=== PATIENT | male | born 1975 | race Caucasian/White ===

== ENCOUNTER 2016-05-31 09:57 | Emergency (ER) | payer OTHER ==
[~2016-05-31] VITALS: Ht 180.3 cm; Wt 133.2 kg
[~2016-05-31 09:57] MED LIST: ALLOPURINOL100 MG PO; COMPAZINE10 MG PO; CYANOCOBAL1000 MCG/2 IM; DICYCLOMINE HCL20 MG PO; FOLIC ACID1 MG PO; GABAPENTIN100 MG PO; LISINOPRIL20 MG PO; METRONIDAZOLE500 MG PO; MYCOSTATIN 100,60 ML PO; NYSTATIN100000 UN1 PO; ONDANSETRON ODT4 MG PO; PANTOPRAZOLE SO40 MG PO; PENTASA250 MG PO; PREDNISONE20 MG PO; TAMSULOSIN HCL0.4 MG PO
[2016-05-31 10:30] LABS: HEMATOCRIT 38.7 % (38.0-50.0); MCH 31.1 PG (29.0-34.0); MCHC 34.1 G/DL (30.0-36.0); MCV 91.1 FL (86-99); MEAN PLAT.VOLUME 9.8 uM^3 (9.0-12.4); PLATELET COUNT 200 K/uL (156-360); RBC DIS.WIDTH-CV 12.7 % (11.8-14.6); RBC DIS.WIDTH-SD 41.5 % (39-53); RED BLOOD COUNT 4.25 M/uL (4.00-5.50); WHITE BLOOD COUNT 6.4 K/uL (4.1-10.2)
[2016-05-31 10:42] LABS: CHLORIDE 108 mEq/L (99-109); POTASSIUM 3.9 mEq/L (3.7-5.4); SODIUM 142 mEq/L (136-147)
[2016-05-31 10:44] LABS: GLUCOSE 93 mg/dL (70-99)
[2016-05-31 10:46] LABS: ANION GAP 11 MEQ/L (2-14)
[2016-05-31 10:48] LABS: GFR ESTIMATE (CALCULATED) > 59 mL/min/
[2016-05-31 10:49] LABS: UREA NITROGEN (BUN) 11 mg/dL (9-23)
[2016-05-31 10:58] LABS: TROP-I INTERPRETATION NEGATIVE; TROPONIN-I 0.02 ng/mL (0.0-0.30)
[2016-05-31 13:38] LABS: TROP-I INTERPRETATION NEGATIVE; TROPONIN-I 0.02 ng/mL (0.0-0.30)
[2016-05-31] MEDS ORDERED: NAPROSYN500 MG PO (14:01)
[2016-05-31] MEDS ORDERED: FLEXERIL10 MG PO (14:01)
[2016-05-31 14:26] VITALS: BP 146/71
== END 2016-05-31 14:27 | disposition home or self-care (01) ==
LOC: EME 09:57
PROVIDERS: Nurse Practitioner Family
DX: R07.9 Chest pain, unspecified (principal); S29.011A Strain of muscle and tendon of front wall of thorax, initial encounter; L30.1 Dyshidrosis [pompholyx]; I10 Essential (primary) hypertension; K21.9 Gastro-esophageal reflux disease without esophagitis; M10.9 Gout, unspecified
CPT/HCPCS: 71020; 80048; 84484; 85027; 93005; 99281; 99284; J1885

== ENCOUNTER 2016-07-12 12:19 | Emergency (ER) | payer OTHER ==
[~2016-07-12] VITALS: Ht 180.3 cm; Wt 130.7 kg
[~2016-07-12 12:19] MED LIST changes: +FLEXERIL10 MG PO; +NAPROSYN500 MG PO
[2016-07-12 13:01] LABS: HEMATOCRIT 41.2 % (38.0-50.0); MCH 30.2 PG (29.0-34.0); MCV 88.8 FL (86-99); PLATELET COUNT 215 K/uL (156-360); RBC DIS.WIDTH-SD 38.9 % (39-53); RED BLOOD COUNT 4.64 M/uL (4.00-5.50); WHITE BLOOD COUNT 5.9 K/uL (4.1-10.2)
[2016-07-12 13:10] LABS: CHLORIDE 107 mEq/L (99-109); SODIUM 142 mEq/L (136-147)
[2016-07-12 13:12] LABS: GLUCOSE 99 mg/dL (70-99)
[2016-07-12 13:13] LABS: ANION GAP 9 MEQ/L (2-14)
[2016-07-12 13:14] LABS: TOTAL BILIRUBIN 0.8 mg/dL (0.0-1.0)
[2016-07-12 13:15] LABS: ALKALINE PHOSPHATASE 72 IU/L (3-129)
[2016-07-12 13:16] LABS: GFR ESTIMATE (CALCULATED) > 59 mL/min/
[2016-07-12 13:17] LABS: UREA NITROGEN (BUN) 12 mg/dL (9-23)
[2016-07-12 15:01] LABS: ADD MIUA? NO; BILIRUBIN NEGATIVE; BLOOD NEGATIVE; COLOR STRAW ((YELLOW)); GLUCOSE (STRIP) NEGATIVE; KETONES NEGATIVE; LEUKOCYTES NEGATIVE; NITRITE NEGATIVE; PROTEIN (STRIP) NEGATIVE; SPECIFIC GRAVITY 1.006 (1.000-1.030); UCUL ADDED? NO; UROBILINOGEN 0.2 MG/DL (0.2-1.0)
[2016-07-12 15:43] VITALS: BP 107/88
== END 2016-07-12 15:44 | disposition home or self-care (01) ==
LOC: EME 12:19
DX: H61.23 Impacted cerumen, bilateral (principal); I10 Essential (primary) hypertension
CPT/HCPCS: 80053; 81003; 85027; 99281; 99285; J7030

== ENCOUNTER 2016-07-14 11:04 | Emergency (ER) | payer OTHER ==
[~2016-07-14] VITALS: Ht 180.3 cm; Wt 133.1 kg
[2016-07-14 11:45] LABS: EOSINOPHIL (%) 0 % (0-5); HEMATOCRIT 39.7 % (38.0-50.0); IMMATURE GRANULOCYTE (%) 0.2 % (0.0-0.7); INSTRUMENT ABS NEUTROPHIL CT 3.6 K/uL; LYMPHOCYTE COUNT 1.3 K/uL (1.0-2.8); MCH 29.9 PG (29.0-34.0); MCHC 33.8 G/DL (30.0-36.0); MCV 88.6 FL (86-99); MEAN PLAT.VOLUME 9.8 uM^3 (9.0-12.4); MONOCYTE (%) 7.3 % (3-12); MONOCYTE COUNT 0.4 K/uL (0-0.8); NEUTROPHIL (%) 67.4 % (45-76); NEUTROPHIL COUNT 3.6 K/uL (1.8-6.4); PLATELET COUNT 197 K/uL (156-360); RBC DIS.WIDTH-CV 12.1 % (11.8-14.6); RBC DIS.WIDTH-SD 39.2 % (39-53); RED BLOOD COUNT 4.48 M/uL (4.00-5.50); WHITE BLOOD COUNT 5.4 K/uL (4.1-10.2)
[2016-07-14 11:55] LABS: CHLORIDE 107 mEq/L (99-109); POTASSIUM 3.7 mEq/L (3.7-5.4); SODIUM 141 mEq/L (136-147)
[2016-07-14 11:57] LABS: GLUCOSE 96 mg/dL (70-99)
[2016-07-14 11:58] LABS: ANION GAP 9 MEQ/L (2-14)
[2016-07-14 11:59] LABS: TOTAL BILIRUBIN 0.7 mg/dL (0.0-1.0)
[2016-07-14 12:00] LABS: ALKALINE PHOSPHATASE 69 IU/L (3-129)
[2016-07-14 12:01] LABS: GFR ESTIMATE (CALCULATED) > 59 mL/min/
[2016-07-14 12:02] LABS: UREA NITROGEN (BUN) 12 mg/dL (9-23)
[2016-07-14 12:06] LABS: TROP-I INTERPRETATION NEGATIVE; TROPONIN-I < 0.01 ng/mL (0.0-0.30)
[2016-07-14 14:04] VITALS: BP 140/77
== END 2016-07-14 14:29 | disposition home or self-care (01) ==
LOC: EME 11:04
PROVIDERS: Emergency Medicine
DX: R42 Dizziness and giddiness (principal); W18.30XA Fall on same level, unspecified, initial encounter; I10 Essential (primary) hypertension
CPT/HCPCS: 70450; 80053; 84484; 85025; 93005; 99281; 99284; J3360; J7030

== ENCOUNTER 2016-07-24 09:18 | Observation (INO) | payer OTHER ==
[~2016-07-24] VITALS: Ht 181.6 cm; Wt 130.0 kg
[2016-07-24 11:14] LABS: EOSINOPHIL (%) 0 % (0-5); HEMATOCRIT 42.9 % (38.0-50.0); IMMATURE GRANULOCYTE (%) 0.2 % (0.0-0.7); INSTRUMENT ABS NEUTROPHIL CT 2.6 K/uL; LYMPHOCYTE COUNT 1.2 K/uL (1.0-2.8); MCH 29.6 PG (29.0-34.0); MCHC 33.6 G/DL (30.0-36.0); MCV 88.1 FL (86-99); MEAN PLAT.VOLUME 10.8 uM^3 (9.0-12.4); MONOCYTE (%) 8.3 % (3-12); MONOCYTE COUNT 0.3 K/uL (0-0.8); NEUTROPHIL (%) 63.4 % (45-76); NEUTROPHIL COUNT 2.6 K/uL (1.8-6.4); PLATELET COUNT 185 K/uL (156-360); RBC DIS.WIDTH-CV 12.1 % (11.8-14.6); RBC DIS.WIDTH-SD 39.3 % (39-53); RED BLOOD COUNT 4.87 M/uL (4.00-5.50); WHITE BLOOD COUNT 4.1 K/uL (4.1-10.2)
[2016-07-24 11:22] LABS: CHLORIDE 104 mEq/L (99-109); POTASSIUM 4.2 mEq/L (3.7-5.4); SODIUM 140 mEq/L (136-147)
[2016-07-24 11:24] LABS: GLUCOSE 82 mg/dL (70-99); INTER. NORMALIZED RATIO 1.1; PROTHROMBIN TIME 10.7 (9.2-11.2); PTT 28.7 (25-32)
[2016-07-24 11:25] LABS: ANION GAP 12 MEQ/L (2-14)
[2016-07-24 11:28] LABS: GFR ESTIMATE (CALCULATED) > 59 mL/min/; UREA NITROGEN (BUN) 12 mg/dL (9-23)
[2016-07-24 11:34] LABS: TROP-I INTERPRETATION NEGATIVE; TROPONIN-I < 0.01 ng/mL (0.0-0.30)
[2016-07-24] MEDS ORDERED: PROTONIX40 MG PO (14:03)
[2016-07-24] MEDS ORDERED: KLOR-CON M2020 MEQ PO (14:04)
[2016-07-24] MEDS ORDERED: BACTROBAN OINTM22 GM TP (14:05)
[2016-07-24] MEDS ORDERED: PENTASA500 MG PO (14:06)
[2016-07-24 15:01] VITALS: BP 131/62
[2016-07-24 18:38] LABS: TROP-I INTERPRETATION NEGATIVE; TROPONIN-I 0.01 ng/mL (0.0-0.30)
[2016-07-24 19:02] VITALS: BP 108/55
[2016-07-24 23:43] LABS: TROP-I INTERPRETATION NEGATIVE; TROPONIN-I < 0.01 ng/mL (0.0-0.30)
[2016-07-25 03:50] VITALS: BP 106/55
[2016-07-25 07:22] VITALS: BP 114/63
[2016-07-25 07:23] VITALS: BP 137/67
[2016-07-25 07:25] VITALS: BP 126/58
[2016-07-25 12:29] VITALS: BP 127/59
== END 2016-07-25 12:33 | disposition home or self-care (01) ==
LOC: EME 09:18 → EDOF 12:45 → 5WEST 14:53
PROVIDERS: Emergency Medicine; Physician Assistant
DX: R07.89 Other chest pain (principal); R20.2 Paresthesia of skin; R53.1 Weakness; I10 Essential (primary) hypertension; M10.9 Gout, unspecified; Z66 Do not resuscitate; D64.9 Anemia, unspecified
CPT/HCPCS: 70450; 70551; 71010; 80048; 84484; 85025; 85610; 85730; 93005; 93880; 99281; 99285; G0378; G8978 GP CJ; G8979 GP CH; J1644; J2060; J2270

== ENCOUNTER 2016-07-30 09:41 | Emergency (ER) | payer OTHER ==
[~2016-07-30] VITALS: Ht 180.3 cm; Wt 155.0 kg
[~2016-07-30 09:41] MED LIST changes: +BACTROBAN OINTM22 GM TP; +KLOR-CON M2020 MEQ PO; +PENTASA500 MG PO; +PROTONIX40 MG PO
[2016-07-30 10:54] LABS: EOSINOPHIL (%) 0 % (0-5); HEMATOCRIT 39.5 % (38.0-50.0); IMMATURE GRANULOCYTE (%) 0.4 % (0.0-0.7); INSTRUMENT ABS NEUTROPHIL CT 4.3 K/uL; MCH 30.1 PG (29.0-34.0); MCHC 34.2 G/DL (30.0-36.0); MCV 88.2 FL (86-99); MEAN PLAT.VOLUME 9.9 uM^3 (9.0-12.4); MONOCYTE COUNT 0.3 K/uL (0-0.8); NEUTROPHIL (%) 75.6 % (45-76); NEUTROPHIL COUNT 4.3 K/uL (1.8-6.4); PLATELET COUNT 177 K/uL (156-360); RBC DIS.WIDTH-CV 12.4 % (11.8-14.6); RBC DIS.WIDTH-SD 40.2 % (39-53); RED BLOOD COUNT 4.48 M/uL (4.00-5.50); WHITE BLOOD COUNT 5.6 K/uL (4.1-10.2)
[2016-07-30 11:03] LABS: CHLORIDE 107 mEq/L (99-109); POTASSIUM 4.5 mEq/L (3.7-5.4); SODIUM 140 mEq/L (136-147)
[2016-07-30 11:06] LABS: GLUCOSE 93 mg/dL (70-99)
[2016-07-30 11:07] LABS: ANION GAP 9 MEQ/L (2-14)
[2016-07-30 11:08] LABS: TOTAL BILIRUBIN 0.8 mg/dL (0.0-1.0)
[2016-07-30 11:09] LABS: SERUM ETHYL ALCOHOL < 10 mg/dL
[2016-07-30 11:10] LABS: ALKALINE PHOSPHATASE 70 IU/L (3-129); GFR ESTIMATE (CALCULATED) > 59 mL/min/
[2016-07-30 11:11] LABS: UREA NITROGEN (BUN) 14 mg/dL (9-23)
[2016-07-30 11:13] LABS: SALICYLATE < 5.0 MG/DL (15-30)
[2016-07-30 12:40] VITALS: BP 134/53
== END 2016-07-30 12:49 | disposition home or self-care (01) ==
LOC: EME 09:41
PROVIDERS: Emergency Medicine
DX: F43.23 Adjustment disorder with mixed anxiety and depressed mood (principal); K50.90 Crohn's disease, unspecified, without complications; I10 Essential (primary) hypertension; Z04.6 Encounter for general psychiatric examination, requested by authority; Z91.040 Latex allergy status
CPT/HCPCS: 80053; 85025; 90837; 99281; 99285; G0480

== ENCOUNTER 2016-08-17 10:32 | Emergency (ER) | payer OTHER ==
[~2016-08-17] VITALS: Ht 180.3 cm; Wt 132.0 kg
[2016-08-17 11:38] LABS: HEMATOCRIT 42.1 % (38.0-50.0); MCH 29.9 PG (29.0-34.0); MCHC 34.4 G/DL (30.0-36.0); MCV 86.8 FL (86-99); MEAN PLAT.VOLUME 10.6 uM^3 (9.0-12.4); PLATELET COUNT 179 K/uL (156-360); RBC DIS.WIDTH-CV 12.8 % (11.8-14.6); RBC DIS.WIDTH-SD 40.6 % (39-53); RED BLOOD COUNT 4.85 M/uL (4.00-5.50); WHITE BLOOD COUNT 4.9 K/uL (4.1-10.2)
[2016-08-17 11:50] LABS: CHLORIDE 107 mEq/L (99-109); POTASSIUM 4.2 mEq/L (3.7-5.4); SODIUM 140 mEq/L (136-147)
[2016-08-17 11:52] LABS: GLUCOSE 88 mg/dL (70-99)
[2016-08-17 11:53] LABS: ANION GAP 9 MEQ/L (2-14)
[2016-08-17 11:54] LABS: TOTAL BILIRUBIN 1.1 mg/dL (0.0-1.0)
[2016-08-17 11:55] LABS: SERUM ETHYL ALCOHOL < 10 mg/dL
[2016-08-17 11:56] LABS: ALKALINE PHOSPHATASE 75 IU/L (3-129); GFR ESTIMATE (CALCULATED) > 59 mL/min/
[2016-08-17 11:57] LABS: UREA NITROGEN (BUN) 9 mg/dL (9-23)
[2016-08-17 12:27] VITALS: BP 138/74
== END 2016-08-17 12:33 | disposition home or self-care (01) ==
LOC: EME 10:32
PROVIDERS: Emergency Medicine
DX: F43.25 Adjustment disorder with mixed disturbance of emotions and conduct (principal); I10 Essential (primary) hypertension; Z91.5 Personal history of self-harm
CPT/HCPCS: 80053; 81003; 85027; 90837; 99281; 99285; G0480

== ENCOUNTER 2016-08-18 10:24 | Emergency (ER) | payer OTHER ==
[~2016-08-18] VITALS: Ht 180.3 cm; Wt 124.0 kg
[2016-08-18 14:26] VITALS: BP 142/63
[2016-08-19] MEDS ORDERED: TAMSULOSIN HCL0.4 MG PO (16:30)
[2016-08-19] MEDS ORDERED: LASIX40 MG PO (16:31)
[2016-08-19] MEDS ORDERED: [UNRECOGNIZED DRUG - OTHER] PO (16:42)
== END 2016-08-18 14:31 | disposition home or self-care (01) ==
LOC: EME 10:24
DX: F32.9 Major depressive disorder, single episode, unspecified (principal); R45.851 Suicidal ideations; I10 Essential (primary) hypertension; K50.90 Crohn's disease, unspecified, without complications
CPT/HCPCS: 90839; 99281; 99285

== ENCOUNTER 2016-08-19 10:33 | Emergency (ER) | payer OTHER ==
[~2016-08-19] VITALS: Ht 172.7 cm; Wt 126.2 kg
[2016-08-19 12:40] VITALS: BP 131/71
[2016-08-19] MEDS ORDERED: TAMSULOSIN HCL0.4 MG PO (16:30)
[2016-08-19] MEDS ORDERED: LASIX40 MG PO (16:31)
[2016-08-19] MEDS ORDERED: [UNRECOGNIZED DRUG - OTHER] PO (16:42)
== END 2016-08-19 12:47 | disposition home or self-care (01) ==
LOC: EME 10:33
DX: F43.25 Adjustment disorder with mixed disturbance of emotions and conduct (principal); F32.9 Major depressive disorder, single episode, unspecified; R45.851 Suicidal ideations
CPT/HCPCS: 90837; 99281; 99285

== ENCOUNTER 2016-08-19 15:22 | Inpatient (IN) | payer OTHER ==
[~2016-08-19] VITALS: Ht 180.3 cm; Wt 126.3 kg
[2016-08-19] MEDS ORDERED: TAMSULOSIN HCL0.4 MG PO (16:30)
[2016-08-19] MEDS ORDERED: LASIX40 MG PO (16:31)
[2016-08-19] MEDS ORDERED: [UNRECOGNIZED DRUG - OTHER] PO (16:42)
[2016-08-19 17:24] VITALS: BP 124/72
[2016-08-20 07:36] VITALS: BP 137/68
[2016-08-20 15:16] VITALS: BP 139/62
[2016-08-21 07:34] VITALS: BP 128/87
[2016-08-21 15:35] VITALS: BP 136/76
[2016-08-22 07:44] VITALS: BP 136/75
[2016-08-22 15:20] VITALS: BP 143/69
[2016-08-23 07:27] VITALS: BP 152/82
[2016-08-23] MEDS ORDERED: DULOXETINE HCL60 MG PO (09:11)
== END 2016-08-23 13:20 | disposition home or self-care (01) | DRG 882 ==
LOC: EME 15:22 → 1WEST 15:55 → EDOF 15:55 → 1WEST 17:09
DX: F43.25 Adjustment disorder with mixed disturbance of emotions and conduct (principal); R41.83 Borderline intellectual functioning; K51.90 Ulcerative colitis, unspecified, without complications; R45.851 Suicidal ideations; R45.850 Homicidal ideations
CPT/HCPCS: 80053; 81003; 85027; 90837; 97150 GO; 97165 GO; 99281; 99285; G0480

== ENCOUNTER 2016-09-08 11:08 | Emergency (ER) | payer OTHER ==
[~2016-09-08] VITALS: Ht 180.3 cm; Wt 126.0 kg
[~2016-09-08 11:08] MED LIST changes: +DULOXETINE HCL60 MG PO; +LASIX40 MG PO; +[UNRECOGNIZED DRUG - OTHER] PO
[2016-09-08 12:10] LABS: EOSINOPHIL (%) 0.4 % (0-5); HEMATOCRIT 43.5 % (38.0-50.0); IMMATURE GRANULOCYTE (%) 0.2 % (0.0-0.7); INSTRUMENT ABS NEUTROPHIL CT 6.4 K/uL; LYMPHOCYTE COUNT 1.4 K/uL (1.0-2.8); MCH 29.4 PG (29.0-34.0); MCHC 33.6 G/DL (30.0-36.0); MCV 87.5 FL (86-99); MEAN PLAT.VOLUME 10.5 uM^3 (9.0-12.4); MONOCYTE (%) 5.3 % (3-12); MONOCYTE COUNT 0.4 K/uL (0-0.8); NEUTROPHIL (%) 76.8 % (45-76); NEUTROPHIL COUNT 6.4 K/uL (1.8-6.4); PLATELET COUNT 184 K/uL (156-360); RBC DIS.WIDTH-CV 12.6 % (11.8-14.6); RBC DIS.WIDTH-SD 40.1 % (39-53); RED BLOOD COUNT 4.97 M/uL (4.00-5.50); WHITE BLOOD COUNT 8.3 K/uL (4.1-10.2)
[2016-09-08 12:16] LABS: CHLORIDE 107 mEq/L (99-109); POTASSIUM 3.8 mEq/L (3.7-5.4); SODIUM 141 mEq/L (136-147)
[2016-09-08 12:18] LABS: GLUCOSE 112 mg/dL (70-99)
[2016-09-08 12:19] LABS: ANION GAP 8 MEQ/L (2-14)
[2016-09-08 12:21] LABS: SERUM ETHYL ALCOHOL < 10 mg/dL
[2016-09-08 12:22] LABS: GFR ESTIMATE (CALCULATED) > 59 mL/min/
[2016-09-08 12:23] LABS: UREA NITROGEN (BUN) 8 mg/dL (9-23)
[2016-09-08 12:24] VITALS: BP 128/70
== END 2016-09-08 12:44 | disposition home or self-care (01) ==
LOC: EME 11:08
PROVIDERS: Emergency Medicine
DX: F43.20 Adjustment disorder, unspecified (principal); F32.9 Major depressive disorder, single episode, unspecified
CPT/HCPCS: 80048; 81003; 85025; 90837; 99281; 99284; G0480

== ENCOUNTER 2016-09-18 09:29 | Emergency (ER) | payer OTHER ==
[~2016-09-18] VITALS: Ht 180.3 cm; Wt 125.9 kg
[2016-09-18 12:27] VITALS: BP 115/97
[2016-09-19] MEDS ORDERED: CYMBALTA60 MG PO (13:44)
== END 2016-09-18 12:28 | disposition home or self-care (01) ==
LOC: EME 09:29
DX: F32.9 Major depressive disorder, single episode, unspecified (principal); R41.83 Borderline intellectual functioning; I10 Essential (primary) hypertension; M10.9 Gout, unspecified; K50.90 Crohn's disease, unspecified, without complications
CPT/HCPCS: 90837; 99281; 99284

== ENCOUNTER 2016-09-19 08:15 | Inpatient (IN) | payer OTHER ==
[~2016-09-19] VITALS: Ht 180.3 cm; Wt 127.2 kg
[2016-09-19 09:47] LABS: AMPHETAMINE NEGATIVE (500 ng/mL); BARBITURATES NEGATIVE (200 ng/mL); BENZODIAZEPINES NEGATIVE (150 ng/mL); COCAINE NEGATIVE (150 ng/mL); INTERNAL CONTROLS VALID? YES; METHADONE NEGATIVE (200 ng/mL); METHAMPHETAMINE NEGATIVE (500 ng/mL); OPIATES (MORPHINE) NEGATIVE (100 ng/mL); OXYCODONE NEGATIVE (100 ng/mL); PHENCYCLIDINE NEGATIVE (25 ng/mL); PROPOXYPHENE NEGATIVE (300 ng/mL); THC CANNABINOIDS NEGATIVE (50 ng/mL); TRICYCLIC ANTIDEPRESSANTS NEGATIVE (300 ng/mL)
[2016-09-19 09:57] LABS: HEMATOCRIT 40.1 % (38.0-50.0); MCH 29.6 PG (29.0-34.0); MCHC 34.2 G/DL (30.0-36.0); MCV 86.6 FL (86-99); MEAN PLAT.VOLUME 10.2 uM^3 (9.0-12.4); PLATELET COUNT 171 K/uL (156-360); RBC DIS.WIDTH-CV 12.7 % (11.8-14.6); RBC DIS.WIDTH-SD 40.1 % (39-53); RED BLOOD COUNT 4.63 M/uL (4.00-5.50); WHITE BLOOD COUNT 6.4 K/uL (4.1-10.2)
[2016-09-19 10:06] LABS: CHLORIDE 107 mEq/L (99-109); POTASSIUM 3.9 mEq/L (3.7-5.4); SODIUM 140 mEq/L (136-147)
[2016-09-19 10:08] LABS: GLUCOSE 92 mg/dL (70-99)
[2016-09-19 10:09] LABS: ANION GAP 9 MEQ/L (2-14)
[2016-09-19 10:11] LABS: GFR ESTIMATE (CALCULATED) > 59 mL/min/; SERUM ETHYL ALCOHOL < 10 mg/dL
[2016-09-19 10:12] LABS: UREA NITROGEN (BUN) 17 mg/dL (9-23)
[2016-09-19] MEDS ORDERED: CYMBALTA60 MG PO (13:44)
[2016-09-19 15:54] VITALS: BP 163/72
[2016-09-20 07:56] VITALS: BP 143/63
[2016-09-20 11:57] VITALS: BP 141/74
[2016-09-20 15:44] VITALS: BP 140/65
[2016-09-21 07:28] VITALS: BP 129/61
[2016-09-21 15:43] VITALS: BP 137/81
[2016-09-22 07:58] VITALS: BP 141/67
[2016-09-22 15:37] VITALS: BP 127/64
[2016-09-23 07:50] VITALS: BP 117/78
[2016-09-23 15:21] VITALS: BP 139/70
[2016-09-24 15:34] VITALS: BP 134/74
[2016-09-25 08:03] VITALS: BP 130/72
[2016-09-25 16:40] VITALS: BP 136/63
[2016-09-26 07:48] VITALS: BP 122/76
[2016-09-26 15:56] VITALS: BP 135/83
[2016-09-27 07:53] VITALS: BP 176/93
[2016-09-27] MEDS ORDERED: KENALOG,ARISTOC15 G2 TP (08:57)
[2016-09-27] MEDS ORDERED: RISPERDAL1 MG PO (08:57)
[2016-09-27] MEDS ORDERED: CYMBALTA30 MG PO ×2 (08:57→09:07)
[2016-09-27] MEDS ORDERED: FOLIC ACID1 MG PO ×2 (08:57→09:07)
[2016-09-27] MEDS ORDERED: CYANOCOBALAM1000 MCG PO (08:57)
== END 2016-09-27 10:15 | disposition home or self-care (01) | DRG 885 ==
LOC: EME 08:15 → 1WEST 13:26 → EDOF 13:26 → 1WEST 15:49
DX: F33.3 Major depressive disorder, recurrent, severe with psychotic symptoms (principal); R45.850 Homicidal ideations; R45.851 Suicidal ideations; R41.83 Borderline intellectual functioning; I10 Essential (primary) hypertension; K50.90 Crohn's disease, unspecified, without complications; L40.9 Psoriasis, unspecified; E66.3 Overweight; Z68.39 Body mass index [BMI] 39.0-39.9, adult; Z91.5 Personal history of self-harm
CPT/HCPCS: 80048; 82607; 82746; 85027; 90837; 90839; 97150 GO; 97165 GO; 99281; 99284; G0480

== ENCOUNTER 2016-10-01 08:17 | Emergency (ER) | payer OTHER ==
[~2016-10-01] VITALS: Ht 180.3 cm; Wt 129.2 kg
[~2016-10-01 08:17] MED LIST changes: +CYANOCOBALAM1000 MCG PO; +CYMBALTA30 MG PO; +CYMBALTA60 MG PO; +KENALOG,ARISTOC15 G2 TP; +RISPERDAL1 MG PO
[2016-10-01 10:25] LABS: AMPHETAMINE NEGATIVE (500 ng/mL); BARBITURATES NEGATIVE (200 ng/mL); BENZODIAZEPINES NEGATIVE (150 ng/mL); COCAINE NEGATIVE (150 ng/mL); INTERNAL CONTROLS VALID? YES; METHADONE NEGATIVE (200 ng/mL); METHAMPHETAMINE NEGATIVE (500 ng/mL); OPIATES (MORPHINE) NEGATIVE (100 ng/mL); OXYCODONE NEGATIVE (100 ng/mL); PHENCYCLIDINE NEGATIVE (25 ng/mL); PROPOXYPHENE NEGATIVE (300 ng/mL); THC CANNABINOIDS NEGATIVE (50 ng/mL); TRICYCLIC ANTIDEPRESSANTS NEGATIVE (300 ng/mL)
[2016-10-01 13:38] VITALS: BP 144/83
== END 2016-10-01 13:38 | disposition home or self-care (01) ==
LOC: EME 08:17
PROVIDERS: Emergency Medicine
DX: F32.9 Major depressive disorder, single episode, unspecified (principal); F31.9 Bipolar disorder, unspecified; F43.24 Adjustment disorder with disturbance of conduct; Z76.5 Malingerer [conscious simulation]; Z91.5 Personal history of self-harm; I10 Essential (primary) hypertension; Z91.040 Latex allergy status
CPT/HCPCS: 99281; 99284

== ENCOUNTER 2016-10-01 16:50 | Emergency (ER) | payer OTHER ==
[~2016-10-01] VITALS: Ht 188 cm; Wt 127.3 kg
[2016-10-01 17:32] LABS: HEMATOCRIT 42.8 % (38.0-50.0); MCH 29.6 PG (29.0-34.0); MCHC 33.6 G/DL (30.0-36.0); MCV 87.9 FL (86-99); MEAN PLAT.VOLUME 9.8 uM^3 (9.0-12.4); PLATELET COUNT 186 K/uL (156-360); RBC DIS.WIDTH-SD 41.6 % (39-53); RED BLOOD COUNT 4.87 M/uL (4.00-5.50); WHITE BLOOD COUNT 6.6 K/uL (4.1-10.2)
[2016-10-01 17:52] LABS: CHLORIDE 105 mEq/L (99-109); POTASSIUM 4.3 mEq/L (3.7-5.4); SODIUM 140 mEq/L (136-147)
[2016-10-01 17:54] LABS: GLUCOSE 91 mg/dL (70-99)
[2016-10-01 17:55] LABS: ANION GAP 10 MEQ/L (2-14)
[2016-10-01 17:56] LABS: TOTAL BILIRUBIN 0.8 mg/dL (0.0-1.0)
[2016-10-01 17:57] LABS: SERUM ETHYL ALCOHOL < 10 mg/dL
[2016-10-01 17:58] LABS: ALKALINE PHOSPHATASE 73 IU/L (3-129); GFR ESTIMATE (CALCULATED) > 59 mL/min/
[2016-10-01 17:59] LABS: UREA NITROGEN (BUN) 11 mg/dL (9-23)
[2016-10-01 20:24] LABS: ADD MIUA? NO; BILIRUBIN NEGATIVE; BLOOD NEGATIVE; COLOR YELLOW ((YELLOW)); GLUCOSE (STRIP) NEGATIVE; KETONES NEGATIVE; LEUKOCYTES NEGATIVE; NITRITE NEGATIVE; PROTEIN (STRIP) 30; SPECIFIC GRAVITY 1.013 (1.000-1.030); UCUL ADDED? NO
[2016-10-01 20:35] LABS: AMPHETAMINE NEGATIVE (500 ng/mL); BARBITURATES NEGATIVE (200 ng/mL); BENZODIAZEPINES NEGATIVE (150 ng/mL); COCAINE NEGATIVE (150 ng/mL); INTERNAL CONTROLS VALID? YES; METHADONE NEGATIVE (200 ng/mL); METHAMPHETAMINE NEGATIVE (500 ng/mL); OPIATES (MORPHINE) NEGATIVE (100 ng/mL); OXYCODONE NEGATIVE (100 ng/mL); PHENCYCLIDINE NEGATIVE (25 ng/mL); PROPOXYPHENE NEGATIVE (300 ng/mL); THC CANNABINOIDS NEGATIVE (50 ng/mL); TRICYCLIC ANTIDEPRESSANTS NEGATIVE (300 ng/mL)
[2016-10-02 10:30] VITALS: BP 128/79
== END 2016-10-02 11:16 | disposition home or self-care (01) ==
LOC: EME 16:50
PROVIDERS: Emergency Medicine
DX: F33.3 Major depressive disorder, recurrent, severe with psychotic symptoms (principal); F89 Unspecified disorder of psychological development; R44.3 Hallucinations, unspecified; R45.851 Suicidal ideations; I10 Essential (primary) hypertension
CPT/HCPCS: 80053; 81003; 85027; 90837; 99281; 99285; G0480

== ENCOUNTER 2016-10-02 12:33 | Emergency (ER) | payer OTHER ==
[~2016-10-02] VITALS: Ht 188 cm; Wt 127.3 kg
[2016-10-02 15:19] VITALS: BP 138/99
== END 2016-10-02 15:00 | disposition home or self-care (01) ==
LOC: EME 12:33
DX: F32.9 Major depressive disorder, single episode, unspecified (principal); I10 Essential (primary) hypertension
CPT/HCPCS: 99281; 99284

== ENCOUNTER 2016-10-17 09:02 | Emergency (ER) | payer OTHER ==
[~2016-10-17] VITALS: Ht 177.8 cm; Wt 98.9 kg
[2016-10-17 10:06] LABS: HEMATOCRIT 42.2 % (38.0-50.0); MCH 29.5 PG (29.0-34.0); MCHC 33.9 G/DL (30.0-36.0); MEAN PLAT.VOLUME 10.2 uM^3 (9.0-12.4); PLATELET COUNT 173 K/uL (156-360); RBC DIS.WIDTH-CV 12.4 % (11.8-14.6); RBC DIS.WIDTH-SD 39.8 % (39-53); RED BLOOD COUNT 4.85 M/uL (4.00-5.50); WHITE BLOOD COUNT 6.6 K/uL (4.1-10.2)
[2016-10-17 10:18] LABS: CHLORIDE 104 mEq/L (99-109); POTASSIUM 4.6 mEq/L (3.7-5.4); SODIUM 139 mEq/L (136-147)
[2016-10-17 10:21] LABS: GLUCOSE 106 mg/dL (70-99)
[2016-10-17 10:22] LABS: ANION GAP 10 MEQ/L (2-14); TOTAL BILIRUBIN 0.5 mg/dL (0.0-1.0)
[2016-10-17 10:23] LABS: SERUM ETHYL ALCOHOL < 10 mg/dL
[2016-10-17 10:24] LABS: ALKALINE PHOSPHATASE 78 IU/L (3-129); GFR ESTIMATE (CALCULATED) > 59 mL/min/
[2016-10-17 10:25] LABS: UREA NITROGEN (BUN) 10 mg/dL (9-23)
[2016-10-17 10:32] LABS: ADD MIUA? NO; BILIRUBIN NEGATIVE; BLOOD NEGATIVE; COLOR YELLOW ((YELLOW)); GLUCOSE (STRIP) NEGATIVE; KETONES NEGATIVE; LEUKOCYTES NEGATIVE; NITRITE NEGATIVE; PROTEIN (STRIP) NEGATIVE; SPECIFIC GRAVITY 1.011 (1.000-1.030); UCUL ADDED? NO; UROBILINOGEN 0.2 MG/DL (0.2-1.0)
[2016-10-17 10:41] LABS: AMPHETAMINE NEGATIVE (500 ng/mL); BARBITURATES NEGATIVE (200 ng/mL); BENZODIAZEPINES NEGATIVE (150 ng/mL); COCAINE NEGATIVE (150 ng/mL); INTERNAL CONTROLS VALID? YES; METHADONE NEGATIVE (200 ng/mL); METHAMPHETAMINE NEGATIVE (500 ng/mL); OPIATES (MORPHINE) NEGATIVE (100 ng/mL); OXYCODONE NEGATIVE (100 ng/mL); PHENCYCLIDINE NEGATIVE (25 ng/mL); PROPOXYPHENE NEGATIVE (300 ng/mL); THC CANNABINOIDS NEGATIVE (50 ng/mL); TRICYCLIC ANTIDEPRESSANTS NEGATIVE (300 ng/mL)
[2016-10-17 12:22] VITALS: BP 148/79
== END 2016-10-17 12:24 | disposition home or self-care (01) ==
LOC: EME 09:02
PROVIDERS: Emergency Medicine
DX: F33.3 Major depressive disorder, recurrent, severe with psychotic symptoms (principal); F89 Unspecified disorder of psychological development; Z04.6 Encounter for general psychiatric examination, requested by authority
CPT/HCPCS: 80053; 81003; 85027; 90837; 99281; 99284; G0480

== ENCOUNTER 2016-10-17 17:16 | Emergency (ER) | payer OTHER ==
[~2016-10-17] VITALS: Ht 180.3 cm; Wt 126.0 kg
[2016-10-17 21:05] VITALS: BP 140/92
== END 2016-10-17 21:08 | disposition home or self-care (01) ==
LOC: EME 17:16
DX: F32.3 Major depressive disorder, single episode, severe with psychotic features (principal); I10 Essential (primary) hypertension
CPT/HCPCS: 90837; 99281; 99282

== ENCOUNTER 2016-10-17 22:18 | Inpatient (IN) | payer OTHER ==
[~2016-10-17] VITALS: Ht 180.3 cm; Wt 128.1 kg
[2016-10-18 04:37] LABS: ADD MIUA? NO; BILIRUBIN NEGATIVE; BLOOD NEGATIVE; COLOR YELLOW ((YELLOW)); GLUCOSE (STRIP) NEGATIVE; KETONES NEGATIVE; LEUKOCYTES NEGATIVE; NITRITE NEGATIVE; PROTEIN (STRIP) NEGATIVE; SPECIFIC GRAVITY 1.014 (1.000-1.030); UCUL ADDED? NO; UROBILINOGEN 0.2 MG/DL (0.2-1.0)
[2016-10-18 04:45] LABS: AMPHETAMINE NEGATIVE (500 ng/mL); BARBITURATES NEGATIVE (200 ng/mL); BENZODIAZEPINES NEGATIVE (150 ng/mL); COCAINE NEGATIVE (150 ng/mL); INTERNAL CONTROLS VALID? YES; METHADONE NEGATIVE (200 ng/mL); METHAMPHETAMINE NEGATIVE (500 ng/mL); OPIATES (MORPHINE) NEGATIVE (100 ng/mL); OXYCODONE NEGATIVE (100 ng/mL); PHENCYCLIDINE NEGATIVE (25 ng/mL); PROPOXYPHENE NEGATIVE (300 ng/mL); THC CANNABINOIDS NEGATIVE (50 ng/mL); TRICYCLIC ANTIDEPRESSANTS NEGATIVE (300 ng/mL)
[2016-10-18 04:57] LABS: HEMATOCRIT 40.1 % (38.0-50.0); MCH 29.6 PG (29.0-34.0); MCHC 34.4 G/DL (30.0-36.0); MCV 85.9 FL (86-99); MEAN PLAT.VOLUME 10.3 uM^3 (9.0-12.4); PLATELET COUNT 155 K/uL (156-360); RBC DIS.WIDTH-CV 12.4 % (11.8-14.6); RED BLOOD COUNT 4.67 M/uL (4.00-5.50); WHITE BLOOD COUNT 5.4 K/uL (4.1-10.2)
[2016-10-18 05:10] LABS: CHLORIDE 106 mEq/L (99-109); POTASSIUM 4.4 mEq/L (3.7-5.4); SODIUM 137 mEq/L (136-147)
[2016-10-18 05:11] LABS: GLUCOSE 104 mg/dL (70-99)
[2016-10-18 05:13] LABS: ANION GAP 7 MEQ/L (2-14)
[2016-10-18 05:14] LABS: SERUM ETHYL ALCOHOL < 10 mg/dL
[2016-10-18 05:15] LABS: GFR ESTIMATE (CALCULATED) > 59 mL/min/
[2016-10-18 05:16] LABS: UREA NITROGEN (BUN) 15 mg/dL (9-23)
[2016-10-18 17:23] VITALS: BP 148/92
[2016-10-19 07:45] VITALS: BP 130/63
[2016-10-19 15:23] VITALS: BP 113/82
[2016-10-20 07:45] VITALS: BP 111/55
[2016-10-20 15:38] VITALS: BP 125/63
[2016-10-21 07:53] VITALS: BP 129/67
[2016-10-21 15:46] VITALS: BP 133/80
[2016-10-22 07:24] VITALS: BP 112/82
[2016-10-22 15:18] VITALS: BP 152/72
[2016-10-23 07:00] VITALS: BP 119/68
[2016-10-23 16:44] VITALS: BP 138/71
[2016-10-24 08:06] VITALS: BP 141/89
[2016-10-24 16:10] VITALS: BP 135/65
[2016-10-25 07:49] VITALS: BP 139/67
[2016-10-25] MEDS ORDERED: DULOXETINE HCL60 MG PO (09:14)
[2016-10-25] MEDS ORDERED: RISPERDAL2 MG PO (09:14)
== END 2016-10-25 12:34 | disposition home or self-care (01) | DRG 885 ==
LOC: EME 22:18 → EDOF 10-18 10:57 → 1WEST 10-18 10:57 → EDOF 10-18 11:07 → 1WEST 10-18 16:46
PROVIDERS: Emergency Medicine
DX: F33.3 Major depressive disorder, recurrent, severe with psychotic symptoms (principal); F79 Unspecified intellectual disabilities; K50.90 Crohn's disease, unspecified, without complications; F41.9 Anxiety disorder, unspecified; I10 Essential (primary) hypertension; R45.851 Suicidal ideations; M10.9 Gout, unspecified; Z68.39 Body mass index [BMI] 39.0-39.9, adult; Z87.891 Personal history of nicotine dependence
CPT/HCPCS: 80048; 81003; 82607; 82746; 85027; 90839; 99281; 99284; G0480

== ENCOUNTER 2016-11-09 13:56 | Emergency (ER) | payer OTHER ==
[~2016-11-09] VITALS: Ht 180.3 cm; Wt 134.3 kg
[~2016-11-09 13:56] MED LIST changes: +RISPERDAL2 MG PO
[2016-11-09 16:51] LABS: HEMATOCRIT 39.8 % (38.0-50.0); MCH 29.1 PG (29.0-34.0); MCHC 33.4 G/DL (30.0-36.0); MCV 87.1 FL (86-99); PLATELET COUNT 184 K/uL (156-360); RBC DIS.WIDTH-CV 12.7 % (11.8-14.6); RBC DIS.WIDTH-SD 40.3 % (39-53); RED BLOOD COUNT 4.57 M/uL (4.00-5.50); WHITE BLOOD COUNT 6.1 K/uL (4.1-10.2)
[2016-11-09 17:04] LABS: CHLORIDE 104 mEq/L (99-109); POTASSIUM 4.7 mEq/L (3.7-5.4); SODIUM 138 mEq/L (136-147)
[2016-11-09 17:06] LABS: GLUCOSE 114 mg/dL (70-99)
[2016-11-09 17:07] LABS: ANION GAP 9 MEQ/L (2-14)
[2016-11-09 17:09] LABS: SERUM ETHYL ALCOHOL < 10 mg/dL
[2016-11-09 17:10] LABS: GFR ESTIMATE (CALCULATED) > 59 mL/min/
[2016-11-09 17:11] LABS: UREA NITROGEN (BUN) 11 mg/dL (9-23)
[2016-11-09 17:13] LABS: SALICYLATE < 5.0 MG/DL (15-30)
[2016-11-09 17:15] LABS: AMPHETAMINE NEGATIVE (500 ng/mL); BARBITURATES NEGATIVE (200 ng/mL); BENZODIAZEPINES NEGATIVE (150 ng/mL); COCAINE NEGATIVE (150 ng/mL); INTERNAL CONTROLS VALID? YES; METHADONE NEGATIVE (200 ng/mL); METHAMPHETAMINE NEGATIVE (500 ng/mL); OPIATES (MORPHINE) NEGATIVE (100 ng/mL); OXYCODONE NEGATIVE (100 ng/mL); PHENCYCLIDINE NEGATIVE (25 ng/mL); PROPOXYPHENE NEGATIVE (300 ng/mL); THC CANNABINOIDS NEGATIVE (50 ng/mL); TRICYCLIC ANTIDEPRESSANTS NEGATIVE (300 ng/mL)
[2016-11-09 18:50] VITALS: BP 120/87
== END 2016-11-09 19:14 | disposition home or self-care (01) ==
LOC: EME 13:56
PROVIDERS: Emergency Medicine
DX: F20.9 Schizophrenia, unspecified (principal); F33.3 Major depressive disorder, recurrent, severe with psychotic symptoms; F89 Unspecified disorder of psychological development; Z87.891 Personal history of nicotine dependence
CPT/HCPCS: 80048; 85027; 90837; 99281; 99285; G0480

== ENCOUNTER 2016-12-01 13:43 | Emergency (ER) | payer OTHER ==
[~2016-12-01] VITALS: Ht 180.3 cm; Wt 138.0 kg
[2016-12-01] MEDS ORDERED: CYMBALTA60 MG PO (16:02)
[2016-12-01] MEDS ORDERED: RISPERDAL2 MG PO (16:02)
[2016-12-01] MEDS ORDERED: VITAMIN B-121000 MCG PO (16:03)
[2016-12-01] MEDS ORDERED: POTASSIUM CHLO20 ME1 PO (16:03)
[2016-12-01 18:58] VITALS: BP 159/89
== END 2016-12-01 18:59 | disposition home or self-care (01) ==
LOC: EME 13:43
DX: F33.3 Major depressive disorder, recurrent, severe with psychotic symptoms (principal); F89 Unspecified disorder of psychological development; I10 Essential (primary) hypertension; K50.90 Crohn's disease, unspecified, without complications; Z91.5 Personal history of self-harm; Z87.891 Personal history of nicotine dependence
CPT/HCPCS: 90839; 99281; 99285

== ENCOUNTER 2016-12-03 05:21 | Inpatient (IN) | payer OTHER ==
[~2016-12-03] VITALS: Ht 180.3 cm; Wt 137.9 kg
[~2016-12-03 05:21] MED LIST changes: +POTASSIUM CHLO20 ME1 PO; +VITAMIN B-121000 MCG PO
[2016-12-03 05:56] LABS: EOSINOPHIL (%) 1.6 % (0-5); EOSINOPHIL COUNT 0.1 K/uL (0-0.3); HEMATOCRIT 40.4 % (38.0-50.0); IMMATURE GRANULOCYTE (%) 0.2 % (0.0-0.7); INSTRUMENT ABS NEUTROPHIL CT 3.6 K/uL; LYMPHOCYTE COUNT 1.3 K/uL (1.0-2.8); MCHC 33.4 G/DL (30.0-36.0); MCV 86.7 FL (86-99); MEAN PLAT.VOLUME 9.3 uM^3 (9.0-12.4); MONOCYTE (%) 9.5 % (3-12); MONOCYTE COUNT 0.5 K/uL (0-0.8); NEUTROPHIL (%) 64.7 % (45-76); NEUTROPHIL COUNT 3.6 K/uL (1.8-6.4); PLATELET COUNT 165 K/uL (156-360); RBC DIS.WIDTH-CV 13.1 % (11.8-14.6); RBC DIS.WIDTH-SD 41.2 % (39-53); RED BLOOD COUNT 4.66 M/uL (4.00-5.50); WHITE BLOOD COUNT 5.5 K/uL (4.1-10.2)
[2016-12-03 06:14] LABS: AMPHETAMINE NEGATIVE (500 ng/mL); BARBITURATES NEGATIVE (200 ng/mL); BENZODIAZEPINES NEGATIVE (150 ng/mL); COCAINE NEGATIVE (150 ng/mL); INTERNAL CONTROLS VALID? YES; METHADONE NEGATIVE (200 ng/mL); METHAMPHETAMINE NEGATIVE (500 ng/mL); OPIATES (MORPHINE) NEGATIVE (100 ng/mL); OXYCODONE NEGATIVE (100 ng/mL); PHENCYCLIDINE NEGATIVE (25 ng/mL); PROPOXYPHENE NEGATIVE (300 ng/mL); THC CANNABINOIDS NEGATIVE (50 ng/mL); TRICYCLIC ANTIDEPRESSANTS NEGATIVE (300 ng/mL)
[2016-12-03 06:18] LABS: CHLORIDE 105 mEq/L (99-109); POTASSIUM 3.7 mEq/L (3.7-5.4); SODIUM 137 mEq/L (136-147)
[2016-12-03 06:21] LABS: GLUCOSE 90 mg/dL (70-99)
[2016-12-03 06:22] LABS: ANION GAP 8 MEQ/L (2-14); TOTAL BILIRUBIN 1.4 mg/dL (0.0-1.0)
[2016-12-03 06:23] LABS: SERUM ETHYL ALCOHOL < 10 mg/dL
[2016-12-03 06:24] LABS: ALKALINE PHOSPHATASE 76 IU/L (3-129); GFR ESTIMATE (CALCULATED) > 59 mL/min/
[2016-12-03 06:25] LABS: UREA NITROGEN (BUN) 20 mg/dL (9-23)
[2016-12-03 06:28] LABS: LIPASE 57 U/L (1.0-51.0)
[2016-12-03 09:07] VITALS: BP 166/75
[2016-12-03 09:17] VITALS: BP 166/75
[2016-12-03 16:07] VITALS: BP 138/70
[2016-12-04 07:49] VITALS: BP 144/73
[2016-12-04 16:14] VITALS: BP 141/71
[2016-12-05 07:23] VITALS: BP 133/66
[2016-12-05 15:35] VITALS: BP 138/80
[2016-12-06 07:39] VITALS: BP 160/97
[2016-12-06 08:59] VITALS: BP 145/77
[2016-12-06] MEDS ORDERED: RISPERDAL2 MG PO (13:18)
== END 2016-12-06 14:55 | disposition home or self-care (01) | DRG 885 ==
LOC: EME → EDBD 05:21 → EME 05:21 → 1WEST 07:17 → EDOF 07:17 → ENRESERV 08:38 → 1WEST 09:01
PROVIDERS: Emergency Medicine
DX: F33.3 Major depressive disorder, recurrent, severe with psychotic symptoms (principal); F79 Unspecified intellectual disabilities; K50.90 Crohn's disease, unspecified, without complications; R45.850 Homicidal ideations; R45.851 Suicidal ideations; E53.8 Deficiency of other specified B group vitamins; E66.9 Obesity, unspecified; Z68.41 Body mass index [BMI] 40.0-44.9, adult; Z76.5 Malingerer [conscious simulation]
CPT/HCPCS: 80053; 83690; 85025; 86140; 90839; 97150 GO; 97165 GO; 99281; 99284; 99285; G0480; Q0177

== ENCOUNTER 2016-12-13 09:17 | Emergency (ER) | payer OTHER ==
[~2016-12-13] VITALS: Ht 180.3 cm; Wt 138.7 kg
[2016-12-13] MEDS ORDERED: MOTRIN800 MG PO (11:04)
[2016-12-13 11:15] VITALS: BP 148/80
== END 2016-12-13 11:16 | disposition home or self-care (01) ==
LOC: EME 09:17
DX: S96.911A Strain of unspecified muscle and tendon at ankle and foot level, right foot, initial encounter (principal); W01.0XXA Fall on same level from slipping, tripping and stumbling without subsequent striking against object, initial encounter; X50.1XXA Overexertion from prolonged static or awkward postures, initial encounter; Y93.01 Activity, walking, marching and hiking; Y92.480 Sidewalk as the place of occurrence of the external cause; Z87.891 Personal history of nicotine dependence
CPT/HCPCS: 73610; 99281; 99284

== ENCOUNTER 2016-12-13 20:34 | Emergency (ER) | payer OTHER ==
[~2016-12-13] VITALS: Ht 180.3 cm; Wt 139.3 kg
[~2016-12-13 20:34] MED LIST changes: +MOTRIN800 MG PO
[2016-12-13 21:12] LABS: HEMATOCRIT 40.4 % (38.0-50.0); MCH 29.4 PG (29.0-34.0); MCHC 34.4 G/DL (30.0-36.0); MCV 85.6 FL (86-99); MEAN PLAT.VOLUME 9.5 uM^3 (9.0-12.4); PLATELET COUNT 211 K/uL (156-360); RBC DIS.WIDTH-CV 12.7 % (11.8-14.6); RBC DIS.WIDTH-SD 39.7 % (39-53); RED BLOOD COUNT 4.72 M/uL (4.00-5.50); WHITE BLOOD COUNT 7.5 K/uL (4.1-10.2)
[2016-12-13 21:21] LABS: CHLORIDE 107 mEq/L (99-109); POTASSIUM 4.1 mEq/L (3.7-5.4); SODIUM 142 mEq/L (136-147)
[2016-12-13 21:22] LABS: GLUCOSE 91 mg/dL (70-99)
[2016-12-13 21:24] LABS: ANION GAP 11 MEQ/L (2-14)
[2016-12-13 21:25] LABS: SERUM ETHYL ALCOHOL < 10 mg/dL
[2016-12-13 21:26] LABS: GFR ESTIMATE (CALCULATED) > 59 mL/min/
[2016-12-13 21:27] LABS: UREA NITROGEN (BUN) 16 mg/dL (9-23)
[2016-12-13 22:30] VITALS: BP 145/85
[2016-12-13 22:30] LABS: AMPHETAMINE NEGATIVE (500 ng/mL); BARBITURATES NEGATIVE (200 ng/mL); BENZODIAZEPINES NEGATIVE (150 ng/mL); COCAINE NEGATIVE (150 ng/mL); INTERNAL CONTROLS VALID? YES; METHADONE NEGATIVE (200 ng/mL); METHAMPHETAMINE NEGATIVE (500 ng/mL); OPIATES (MORPHINE) NEGATIVE (100 ng/mL); OXYCODONE NEGATIVE (100 ng/mL); PHENCYCLIDINE NEGATIVE (25 ng/mL); PROPOXYPHENE NEGATIVE (300 ng/mL); THC CANNABINOIDS NEGATIVE (50 ng/mL); TRICYCLIC ANTIDEPRESSANTS NEGATIVE (300 ng/mL)
== END 2016-12-13 22:40 | disposition home or self-care (01) ==
LOC: EME 20:34
PROVIDERS: Emergency Medicine
DX: F32.9 Major depressive disorder, single episode, unspecified (principal); F89 Unspecified disorder of psychological development; Z76.5 Malingerer [conscious simulation]; I10 Essential (primary) hypertension; Z87.891 Personal history of nicotine dependence
CPT/HCPCS: 80048; 85027; 90839; 99281; 99285; G0480

== ENCOUNTER 2016-12-15 11:38 | Emergency (ER) | payer OTHER ==
[~2016-12-15] VITALS: Ht 180.3 cm; Wt 140.6 kg
[2016-12-15 12:56] LABS: HEMATOCRIT 40.9 % (38.0-50.0); MCHC 33.5 G/DL (30.0-36.0); MCV 86.5 FL (86-99); MEAN PLAT.VOLUME 9.8 uM^3 (9.0-12.4); PLATELET COUNT 206 K/uL (156-360); RBC DIS.WIDTH-CV 12.8 % (11.8-14.6); RBC DIS.WIDTH-SD 40.4 % (39-53); RED BLOOD COUNT 4.73 M/uL (4.00-5.50); WHITE BLOOD COUNT 6.6 K/uL (4.1-10.2)
[2016-12-15 13:04] LABS: CHLORIDE 106 mEq/L (99-109); POTASSIUM 4.3 mEq/L (3.7-5.4); SODIUM 138 mEq/L (136-147)
[2016-12-15 13:06] LABS: GLUCOSE 103 mg/dL (70-99)
[2016-12-15 13:07] LABS: ANION GAP 9 MEQ/L (2-14)
[2016-12-15 13:09] LABS: SERUM ETHYL ALCOHOL < 10 mg/dL
[2016-12-15 13:10] LABS: GFR ESTIMATE (CALCULATED) > 59 mL/min/
[2016-12-15 13:11] LABS: UREA NITROGEN (BUN) 12 mg/dL (9-23)
[2016-12-15 14:56] LABS: AMPHETAMINE NEGATIVE (500 ng/mL); BARBITURATES NEGATIVE (200 ng/mL); BENZODIAZEPINES NEGATIVE (150 ng/mL); COCAINE NEGATIVE (150 ng/mL); INTERNAL CONTROLS VALID? YES; METHADONE NEGATIVE (200 ng/mL); METHAMPHETAMINE NEGATIVE (500 ng/mL); OPIATES (MORPHINE) NEGATIVE (100 ng/mL); OXYCODONE NEGATIVE (100 ng/mL); PHENCYCLIDINE NEGATIVE (25 ng/mL); PROPOXYPHENE NEGATIVE (300 ng/mL); THC CANNABINOIDS NEGATIVE (50 ng/mL); TRICYCLIC ANTIDEPRESSANTS NEGATIVE (300 ng/mL)
[2016-12-15 18:48] VITALS: BP 155/94
== END 2016-12-15 18:49 ==
LOC: EME 11:38
DX: F33.3 Major depressive disorder, recurrent, severe with psychotic symptoms (principal); R45.851 Suicidal ideations; F89 Unspecified disorder of psychological development; Z87.891 Personal history of nicotine dependence
CPT/HCPCS: 80048; 85027; 90837; 99281; 99284; G0480

== ENCOUNTER 2016-12-24 15:51 | Emergency (ER) | payer OTHER ==
[~2016-12-24] VITALS: Ht 180.3 cm; Wt 137.0 kg
[2016-12-24 16:13] LABS: HEMATOCRIT 39.5 % (38.0-50.0); MCH 29.1 PG (29.0-34.0); MCHC 33.7 G/DL (30.0-36.0); MCV 86.4 FL (86-99); MEAN PLAT.VOLUME 9.6 uM^3 (9.0-12.4); PLATELET COUNT 153 K/uL (156-360); RBC DIS.WIDTH-CV 12.9 % (11.8-14.6); RBC DIS.WIDTH-SD 40.7 % (39-53); RED BLOOD COUNT 4.57 M/uL (4.00-5.50); WHITE BLOOD COUNT 5.6 K/uL (4.1-10.2)
[2016-12-24 16:24] LABS: CHLORIDE 106 mEq/L (99-109); POTASSIUM 3.8 mEq/L (3.7-5.4); SODIUM 138 mEq/L (136-147)
[2016-12-24 16:26] LABS: GLUCOSE 119 mg/dL (70-99)
[2016-12-24 16:27] LABS: ANION GAP 10 MEQ/L (2-14)
[2016-12-24 16:28] LABS: TOTAL BILIRUBIN 0.5 mg/dL (0.0-1.0)
[2016-12-24 16:30] LABS: ALKALINE PHOSPHATASE 74 IU/L (3-129); GFR ESTIMATE (CALCULATED) > 59 mL/min/
[2016-12-24 16:31] LABS: UREA NITROGEN (BUN) 18 mg/dL (9-23)
[2016-12-24 16:33] LABS: LIPASE 77 U/L (1.0-51.0)
[2016-12-24 17:14] LABS: ADD MIUA? NO; BILIRUBIN NEGATIVE; BLOOD NEGATIVE; COLOR YELLOW ((YELLOW)); GLUCOSE (STRIP) NEGATIVE; KETONES NEGATIVE; LEUKOCYTES NEGATIVE; NITRITE NEGATIVE; PROTEIN (STRIP) NEGATIVE; SPECIFIC GRAVITY 1.025 (1.000-1.030); UCUL ADDED? NO; UROBILINOGEN 0.2 MG/DL (0.2-1.0)
[2016-12-24 17:33] VITALS: BP 130/75
== END 2016-12-24 17:33 | disposition home or self-care (01) ==
LOC: EME → EDBD 15:51 → EME 15:51
DX: K21.9 Gastro-esophageal reflux disease without esophagitis (principal); K50.90 Crohn's disease, unspecified, without complications; I10 Essential (primary) hypertension; Z87.891 Personal history of nicotine dependence
CPT/HCPCS: 80053; 81003; 83690; 85027; 93005; 99281; 99284

== ENCOUNTER 2016-12-29 07:31 | Emergency (ER) | payer OTHER ==
[~2016-12-29] VITALS: Ht 185.4 cm; Wt 120.7 kg
[2016-12-29 09:18] VITALS: BP 167/87
== END 2016-12-29 09:37 | disposition home or self-care (01) ==
LOC: EME 07:31
DX: R44.0 Auditory hallucinations (principal); R45.851 Suicidal ideations; F89 Unspecified disorder of psychological development; Z76.5 Malingerer [conscious simulation]; Z87.891 Personal history of nicotine dependence; I10 Essential (primary) hypertension; M10.9 Gout, unspecified; K50.90 Crohn's disease, unspecified, without complications
CPT/HCPCS: 90837; 99281; 99283

== ENCOUNTER 2016-12-29 10:09 | Emergency (ER) | payer OTHER ==
[~2016-12-29] VITALS: Ht 180.3 cm; Wt 133.7 kg
[2016-12-29 13:19] VITALS: BP 157/98
== END 2016-12-29 13:19 | disposition home or self-care (01) ==
LOC: EME 10:09
DX: F32.9 Major depressive disorder, single episode, unspecified (principal); F79 Unspecified intellectual disabilities; F89 Unspecified disorder of psychological development; Z76.5 Malingerer [conscious simulation]; Z87.891 Personal history of nicotine dependence
CPT/HCPCS: 90837; 99281; 99284

== ENCOUNTER 2017-01-15 08:38 | Emergency (ER) | payer OTHER ==
[~2017-01-15] VITALS: Ht 180.3 cm; Wt 133.6 kg
[2017-01-15 10:30] VITALS: BP 160/80
== END 2017-01-15 15:32 | disposition home or self-care (01) ==
LOC: EME 08:38
DX: F32.9 Major depressive disorder, single episode, unspecified (principal); Z76.5 Malingerer [conscious simulation]; F89 Unspecified disorder of psychological development; K50.90 Crohn's disease, unspecified, without complications; Z91.5 Personal history of self-harm; Z87.891 Personal history of nicotine dependence
CPT/HCPCS: 90837; 99281; 99285

== ENCOUNTER 2017-01-15 14:48 | Emergency (ER) | payer OTHER ==
[~2017-01-15] VITALS: Ht 180.3 cm; Wt 177.8 kg
[2017-01-15 15:32] VITALS: BP 119/98
== END 2017-01-15 15:33 | disposition home or self-care (01) ==
LOC: EME 14:48
DX: F79 Unspecified intellectual disabilities (principal); F60.3 Borderline personality disorder; R44.0 Auditory hallucinations; Z87.891 Personal history of nicotine dependence
CPT/HCPCS: 99281; 99282

== ENCOUNTER 2017-01-23 07:17 | Emergency (ER) | payer OTHER ==
[~2017-01-23] VITALS: Ht 180.3 cm; Wt 133.6 kg
[2017-01-23 08:15] VITALS: BP 130/74
== END 2017-01-23 08:15 | disposition home or self-care (01) ==
LOC: EME 07:17
DX: F20.9 Schizophrenia, unspecified (principal); F33.1 Major depressive disorder, recurrent, moderate; F89 Unspecified disorder of psychological development; Z76.5 Malingerer [conscious simulation]; I10 Essential (primary) hypertension; K50.90 Crohn's disease, unspecified, without complications; Z91.5 Personal history of self-harm; Z87.891 Personal history of nicotine dependence; Z91.040 Latex allergy status
CPT/HCPCS: 90839; 99281; 99285

== ENCOUNTER 2017-01-26 12:15 | Emergency (ER) | payer OTHER ==
[~2017-01-26] VITALS: Ht 185.4 cm; Wt 136.0 kg
[2017-01-26 13:00] LABS: AMPHETAMINE NEGATIVE (500 ng/mL); BARBITURATES NEGATIVE (200 ng/mL); BENZODIAZEPINES NEGATIVE (150 ng/mL); COCAINE NEGATIVE (150 ng/mL); INTERNAL CONTROLS VALID? YES; METHADONE NEGATIVE (200 ng/mL); METHAMPHETAMINE NEGATIVE (500 ng/mL); OPIATES (MORPHINE) NEGATIVE (100 ng/mL); OXYCODONE NEGATIVE (100 ng/mL); PHENCYCLIDINE NEGATIVE (25 ng/mL); PROPOXYPHENE NEGATIVE (300 ng/mL); THC CANNABINOIDS NEGATIVE (50 ng/mL); TRICYCLIC ANTIDEPRESSANTS NEGATIVE (300 ng/mL)
[2017-01-26 13:01] LABS: EOSINOPHIL COUNT 0.1 K/uL (0-0.3); HEMATOCRIT 41.5 % (38.0-50.0); IMMATURE GRANULOCYTE (%) 0.4 % (0.0-0.7); INSTRUMENT ABS NEUTROPHIL CT 2.9 K/uL; LYMPHOCYTE COUNT 1.2 K/uL (1.0-2.8); MCH 28.7 PG (29.0-34.0); MCHC 33.3 G/DL (30.0-36.0); MCV 86.3 FL (86-99); MEAN PLAT.VOLUME 9.5 uM^3 (9.0-12.4); MONOCYTE (%) 6.7 % (3-12); MONOCYTE COUNT 0.3 K/uL (0-0.8); NEUTROPHIL (%) 62.3 % (45-76); NEUTROPHIL COUNT 2.9 K/uL (1.8-6.4); PLATELET COUNT 182 K/uL (156-360); RBC DIS.WIDTH-CV 12.8 % (11.8-14.6); RBC DIS.WIDTH-SD 40.5 % (39-53); RED BLOOD COUNT 4.81 M/uL (4.00-5.50); WHITE BLOOD COUNT 4.6 K/uL (4.1-10.2)
[2017-01-26 13:12] LABS: CHLORIDE 103 mEq/L (99-109); POTASSIUM 4.1 mEq/L (3.7-5.4); SODIUM 140 mEq/L (136-147)
[2017-01-26 13:14] LABS: GLUCOSE 96 mg/dL (70-99)
[2017-01-26 13:15] LABS: ANION GAP 13 MEQ/L (2-14)
[2017-01-26 13:17] LABS: SERUM ETHYL ALCOHOL < 10 mg/dL
[2017-01-26 13:18] LABS: GFR ESTIMATE (CALCULATED) > 59 mL/min/; UREA NITROGEN (BUN) 10 mg/dL (9-23)
[2017-01-26 13:59] VITALS: BP 159/60
== END 2017-01-26 14:01 | disposition home or self-care (01) ==
LOC: EME 12:15
PROVIDERS: Personal Emergency Response Attendant
DX: F39 Unspecified mood [affective] disorder (principal); F89 Unspecified disorder of psychological development; Z76.5 Malingerer [conscious simulation]; R44.1 Visual hallucinations; R44.0 Auditory hallucinations; F79 Unspecified intellectual disabilities; Z87.891 Personal history of nicotine dependence
CPT/HCPCS: 80048; 85025; 90837; 99281; 99285; G0480

== ENCOUNTER 2017-01-27 09:39 | Emergency (ER) | payer OTHER ==
[~2017-01-27] VITALS: Ht 180.3 cm; Wt 71.1 kg
[2017-01-27 11:43] VITALS: BP 163/86
== END 2017-01-27 11:44 | disposition left against medical advice (07) ==
LOC: EME 09:39
DX: F33.1 Major depressive disorder, recurrent, moderate (principal); F41.9 Anxiety disorder, unspecified; F89 Unspecified disorder of psychological development; Z76.5 Malingerer [conscious simulation]; Z04.6 Encounter for general psychiatric examination, requested by authority; Z91.5 Personal history of self-harm; I10 Essential (primary) hypertension; M10.9 Gout, unspecified; K50.90 Crohn's disease, unspecified, without complications; Z91.040 Latex allergy status; Z87.891 Personal history of nicotine dependence
CPT/HCPCS: 90837; 99281; 99285

== ENCOUNTER 2017-01-28 07:23 | Emergency (ER) | payer OTHER ==
[~2017-01-28] VITALS: Ht 180.3 cm; Wt 132.4 kg
[2017-01-28 09:47] VITALS: BP 163/103
[2017-01-29] MEDS ORDERED: NAPROSYN500 MG PO (03:06)
== END 2017-01-28 09:48 | disposition home or self-care (01) ==
LOC: EME 07:23
DX: F33.1 Major depressive disorder, recurrent, moderate (principal); F25.9 Schizoaffective disorder, unspecified; R45.851 Suicidal ideations; I10 Essential (primary) hypertension; K50.90 Crohn's disease, unspecified, without complications; M10.9 Gout, unspecified; Z87.891 Personal history of nicotine dependence
CPT/HCPCS: 90837; 99281; 99284

== ENCOUNTER 2017-01-28 12:00 | Emergency (ER) | payer OTHER ==
[~2017-01-28] VITALS: Ht 180.3 cm; Wt 128.3 kg
[2017-01-28 15:32] VITALS: BP 104/73
[2017-01-29] MEDS ORDERED: NAPROSYN500 MG PO (03:06)
== END 2017-01-28 15:33 | disposition home or self-care (01) ==
LOC: EME 12:00
DX: F91.9 Conduct disorder, unspecified (principal); F20.9 Schizophrenia, unspecified; F32.9 Major depressive disorder, single episode, unspecified; I10 Essential (primary) hypertension; K50.90 Crohn's disease, unspecified, without complications; Z91.5 Personal history of self-harm; Z87.891 Personal history of nicotine dependence; Z91.040 Latex allergy status
CPT/HCPCS: 90832; 99281; 99285

== ENCOUNTER 2017-01-29 00:48 | Emergency (ER) | payer OTHER ==
[~2017-01-29] VITALS: Ht 180.3 cm; Wt 135.6 kg
[2017-01-29] MEDS ORDERED: NAPROSYN500 MG PO (03:06)
[2017-01-29 03:29] VITALS: BP 138/87
== END 2017-01-29 03:30 | disposition home or self-care (01) ==
LOC: EME → EDBD 00:48 → EME 00:48
DX: K40.90 Unilateral inguinal hernia, without obstruction or gangrene, not specified as recurrent (principal); N50.3 Cyst of epididymis; Z87.891 Personal history of nicotine dependence
CPT/HCPCS: 76870; 99281; 99284

== ENCOUNTER 2017-01-29 08:12 | Emergency (ER) | payer OTHER ==
[~2017-01-29] VITALS: Ht 180.3 cm; Wt 135.9 kg
[2017-01-29 09:08] VITALS: BP 142/89
== END 2017-01-29 09:15 | disposition home or self-care (01) ==
LOC: EME 08:12
DX: K40.90 Unilateral inguinal hernia, without obstruction or gangrene, not specified as recurrent (principal); K50.90 Crohn's disease, unspecified, without complications; I10 Essential (primary) hypertension; F25.9 Schizoaffective disorder, unspecified; Z87.891 Personal history of nicotine dependence; Z91.040 Latex allergy status
CPT/HCPCS: 99281; 99283

== ENCOUNTER 2017-01-30 00:21 | Emergency (ER) | payer OTHER ==
[~2017-01-30] VITALS: Ht 180.3 cm; Wt 135.3 kg
[2017-01-30 02:09] VITALS: BP 144/88
== END 2017-01-30 02:18 | disposition home or self-care (01) ==
LOC: EME 00:21
DX: F41.9 Anxiety disorder, unspecified (principal); I10 Essential (primary) hypertension; M10.9 Gout, unspecified; K50.90 Crohn's disease, unspecified, without complications; Z91.040 Latex allergy status
CPT/HCPCS: 99281; 99284

== ENCOUNTER 2017-01-30 13:21 | Emergency (ER) | payer OTHER ==
[~2017-01-30] VITALS: Ht 180.3 cm; Wt 138.8 kg
[2017-01-30 13:32] VITALS: BP 134/96
== END 2017-01-30 14:30 | disposition left against medical advice (07) ==
LOC: EME 13:21
DX: F25.9 Schizoaffective disorder, unspecified (principal); R44.0 Auditory hallucinations; K50.90 Crohn's disease, unspecified, without complications; I10 Essential (primary) hypertension; M10.9 Gout, unspecified; Z91.040 Latex allergy status
CPT/HCPCS: 80048; 85027; 99281; 99284; G0480

== ENCOUNTER 2017-01-31 00:37 | Emergency (ER) | payer OTHER ==
[~2017-01-31] VITALS: Ht 177.8 cm; Wt 138.9 kg
[2017-01-31 00:59] LABS: EOSINOPHIL (%) 4.7 % (0-5); EOSINOPHIL COUNT 0.2 K/uL (0-0.3); HEMATOCRIT 36.8 % (38.0-50.0); IMMATURE GRANULOCYTE (%) 0.2 % (0.0-0.7); INSTRUMENT ABS NEUTROPHIL CT 2.9 K/uL; LYMPHOCYTE COUNT 1.5 K/uL (1.0-2.8); MCH 28.6 PG (29.0-34.0); MCHC 33.2 G/DL (30.0-36.0); MCV 86.4 FL (86-99); MEAN PLAT.VOLUME 9.8 uM^3 (9.0-12.4); MONOCYTE (%) 7.5 % (3-12); MONOCYTE COUNT 0.4 K/uL (0-0.8); NEUTROPHIL (%) 57.6 % (45-76); NEUTROPHIL COUNT 2.9 K/uL (1.8-6.4); PLATELET COUNT 166 K/uL (156-360); RBC DIS.WIDTH-CV 13.1 % (11.8-14.6); RBC DIS.WIDTH-SD 40.8 % (39-53); RED BLOOD COUNT 4.26 M/uL (4.00-5.50); WHITE BLOOD COUNT 5.1 K/uL (4.1-10.2)
[2017-01-31 01:07] LABS: CHLORIDE 107 mEq/L (99-109); POTASSIUM 3.5 mEq/L (3.7-5.4); SODIUM 139 mEq/L (136-147)
[2017-01-31 01:09] LABS: GLUCOSE 87 mg/dL (70-99)
[2017-01-31 01:10] LABS: ANION GAP 10 MEQ/L (2-14)
[2017-01-31 01:13] LABS: GFR ESTIMATE (CALCULATED) > 59 mL/min/
[2017-01-31 01:16] LABS: UREA NITROGEN (BUN) 22 mg/dL (9-23)
[2017-01-31 01:21] LABS: TROP-I INTERPRETATION NEGATIVE; TROPONIN-I < 0.01 ng/mL (0.0-0.30)
[2017-01-31 03:57] LABS: TROP-I INTERPRETATION NEGATIVE; TROPONIN-I < 0.01 ng/mL (0.0-0.30)
[2017-01-31 04:11] VITALS: BP 128/79
== END 2017-01-31 04:12 | disposition home or self-care (01) ==
LOC: EME 00:37
PROVIDERS: Emergency Medicine
DX: R07.89 Other chest pain (principal); I10 Essential (primary) hypertension; M10.9 Gout, unspecified; K50.90 Crohn's disease, unspecified, without complications; Z59.0 Homelessness
CPT/HCPCS: 71010; 80048; 84484; 85025; 93005; 99281; 99285

== ENCOUNTER 2017-02-01 12:33 | Emergency (ER) | payer OTHER ==
[~2017-02-01] VITALS: Ht 181.6 cm; Wt 136.8 kg
[2017-02-01 12:40] VITALS: BP 141/92
== END 2017-02-01 17:13 | disposition left against medical advice (07) ==
LOC: EME 12:33
DX: R44.0 Auditory hallucinations (principal); Z53.21 Procedure and treatment not carried out due to patient leaving prior to being seen by health care provider

== ENCOUNTER 2017-03-10 04:02 | Emergency (ER) | payer OTHER ==
[~2017-03-10] VITALS: Ht 177.8 cm; Wt 135.7 kg
[2017-03-10 04:45] LABS: EOSINOPHIL (%) 1.1 % (0-5); EOSINOPHIL COUNT 0.1 K/uL (0-0.3); HEMATOCRIT 44.7 % (38.0-50.0); IMMATURE GRANULOCYTE (%) 0.2 % (0.0-0.7); LYMPHOCYTE COUNT 1.3 K/uL (1.0-2.8); MCH 29.1 PG (29.0-34.0); MCHC 35.1 G/DL (30.0-36.0); MCV 82.8 FL (86-99); MEAN PLAT.VOLUME 10.4 uM^3 (9.0-12.4); MONOCYTE (%) 6.5 % (3-12); MONOCYTE COUNT 0.3 K/uL (0-0.8); NEUTROPHIL (%) 63.9 % (45-76); PLATELET COUNT 169 K/uL (156-360); RBC DIS.WIDTH-SD 39.1 % (39-53); WHITE BLOOD COUNT 4.6 K/uL (4.1-10.2)
[2017-03-10 05:00] LABS: CHLORIDE 108 mEq/L (99-109); POTASSIUM 3.7 mEq/L (3.7-5.4); SODIUM 138 mEq/L (136-147)
[2017-03-10 05:02] LABS: GLUCOSE 100 mg/dL (70-99)
[2017-03-10 05:03] LABS: ANION GAP 10 MEQ/L (2-14)
[2017-03-10 05:04] LABS: TOTAL BILIRUBIN 0.8 mg/dL (0.0-1.0)
[2017-03-10 05:05] LABS: SERUM ETHYL ALCOHOL < 10 mg/dL
[2017-03-10 05:06] LABS: GFR ESTIMATE (CALCULATED) > 59 mL/min/
[2017-03-10 05:07] LABS: ALKALINE PHOSPHATASE 89 IU/L (3-129)
[2017-03-10 05:08] LABS: UREA NITROGEN (BUN) 6 mg/dL (9-23)
[2017-03-10 05:09] LABS: SALICYLATE 6.9 MG/DL (15-30)
[2017-03-10 06:40] LABS: AMPHETAMINE NEGATIVE (500 ng/mL); BARBITURATES NEGATIVE (200 ng/mL); BENZODIAZEPINES NEGATIVE (150 ng/mL); COCAINE NEGATIVE (150 ng/mL); INTERNAL CONTROLS VALID? YES; METHADONE NEGATIVE (200 ng/mL); METHAMPHETAMINE NEGATIVE (500 ng/mL); OPIATES (MORPHINE) NEGATIVE (100 ng/mL); OXYCODONE NEGATIVE (100 ng/mL); PHENCYCLIDINE NEGATIVE (25 ng/mL); PROPOXYPHENE NEGATIVE (300 ng/mL); THC CANNABINOIDS NEGATIVE (50 ng/mL); TRICYCLIC ANTIDEPRESSANTS NEGATIVE (300 ng/mL)
[2017-03-10 11:50] VITALS: BP 128/74
== END 2017-03-10 11:59 | disposition home or self-care (01) ==
LOC: EME 04:02
PROVIDERS: Emergency Medicine
DX: F79 Unspecified intellectual disabilities (principal); F89 Unspecified disorder of psychological development; Z76.5 Malingerer [conscious simulation]; R44.0 Auditory hallucinations; Z87.891 Personal history of nicotine dependence
CPT/HCPCS: 80053; 85025; 90837; 99281; 99285; G0480

== ENCOUNTER 2017-03-10 14:16 | Emergency (ER) | payer OTHER ==
[~2017-03-10] VITALS: Ht 180.3 cm; Wt 138.6 kg
[2017-03-10 15:15] LABS: HEMATOCRIT 46.5 % (38.0-50.0); MCH 28.6 PG (29.0-34.0); MCHC 34.4 G/DL (30.0-36.0); MCV 83.2 FL (86-99); MEAN PLAT.VOLUME 10.5 uM^3 (9.0-12.4); PLATELET COUNT 197 K/uL (156-360); RBC DIS.WIDTH-CV 13.2 % (11.8-14.6); RBC DIS.WIDTH-SD 39.8 % (39-53); RED BLOOD COUNT 5.59 M/uL (4.00-5.50); WHITE BLOOD COUNT 7.6 K/uL (4.1-10.2)
[2017-03-10 15:48] LABS: ANION GAP 10 MEQ/L (2-14); CHLORIDE 107 MEQ/L (99-109); POTASSIUM 3.8 MEQ/L (3.7-5.4); SAMPLE HEMOLYSIS CHECK 0; SAMPLE ICTERIC CHECK 0; SAMPLE LIPEMIA CHECK 0; SODIUM 141 MEQ/L (136-147)
[2017-03-10 15:58] LABS: GFR ESTIMATE (CALCULATED) > 59 mL/min/; GLUCOSE 96 mg/dL (70-99); SERUM ETHYL ALCOHOL < 10 mg/dL; UREA NITROGEN (BUN) 10 mg/dL (9-23)
[2017-03-10 20:52] LABS: AMPHETAMINE NEGATIVE (500 ng/mL); BARBITURATES NEGATIVE (200 ng/mL); BENZODIAZEPINES NEGATIVE (150 ng/mL); COCAINE NEGATIVE (150 ng/mL); INTERNAL CONTROLS VALID? YES; METHADONE NEGATIVE (200 ng/mL); METHAMPHETAMINE NEGATIVE (500 ng/mL); OPIATES (MORPHINE) NEGATIVE (100 ng/mL); OXYCODONE NEGATIVE (100 ng/mL); PHENCYCLIDINE NEGATIVE (25 ng/mL); PROPOXYPHENE NEGATIVE (300 ng/mL); THC CANNABINOIDS NEGATIVE (50 ng/mL); TRICYCLIC ANTIDEPRESSANTS NEGATIVE (300 ng/mL)
[2017-03-10 21:35] VITALS: BP 134/83
== END 2017-03-10 21:37 | disposition home or self-care (01) ==
LOC: EME 14:16
DX: F32.9 Major depressive disorder, single episode, unspecified (principal); F20.9 Schizophrenia, unspecified; F41.9 Anxiety disorder, unspecified; Z76.5 Malingerer [conscious simulation]; K50.90 Crohn's disease, unspecified, without complications; I10 Essential (primary) hypertension; M10.9 Gout, unspecified; Z91.040 Latex allergy status
CPT/HCPCS: 80048; 85027; 90839; 99281; 99284; G0480

== ENCOUNTER 2017-05-13 04:37 | Emergency (ER) | payer OTHER ==
[~2017-05-13] VITALS: Ht 180.3 cm; Wt 129.8 kg
[2017-05-13 05:34] LABS: ALBUMIN 4.6 g/dL (3.2-4.8); CHLORIDE 105 mEq/L (99-109); POTASSIUM 3.6 mEq/L (3.7-5.4); SODIUM 141 mEq/L (136-147)
[2017-05-13 05:36] LABS: GLUCOSE 101 mg/dL (70-99); TOTAL PROTEIN 7.9 g/dL (6.4-8.3)
[2017-05-13 05:39] LABS: SERUM ETHYL ALCOHOL < 10 mg/dL
[2017-05-13 05:40] LABS: ALKALINE PHOSPHATASE 116 IU/L (3-129); CREATININE 1.3 mg/dL (0.6-1.3); GFR ESTIMATE (CALCULATED) > 59 mL/min/ (58.99-99999)
[2017-05-13 05:41] LABS: AST (GOT) 17 IU/L (2-34); UREA NITROGEN (BUN) 10 mg/dL (9-23)
[2017-05-13 05:43] LABS: ALT (GPT) 12 IU/L (3-49)
[2017-05-13 05:48] LABS: HEMATOCRIT 44.2 % (38.0-50.0); HEMOGLOBIN 15.4 G/DL (12.5-16.6); MCH 29.2 PG (29.0-34.0); MCHC 34.8 G/DL (30.0-36.0); MCV 83.9 FL (86-99); PLATELET COUNT 188 K/uL (156-360); RBC DIS.WIDTH-CV 13.4 % (11.8-14.6); RBC DIS.WIDTH-SD 40.8 % (39-53); RED BLOOD COUNT 5.27 M/uL (4.00-5.50); WHITE BLOOD COUNT 5.5 K/uL (4.1-10.2)
[2017-05-13 06:42] LABS: APPEARANCE SL.HAZY ((CLEAR)); BILIRUBIN NEGATIVE; BLOOD NEGATIVE; COLOR AMBER ((YELLOW)); GLUCOSE (STRIP) NEGATIVE; KETONES NEGATIVE; LEUKOCYTES NEGATIVE; NITRITE NEGATIVE; PROTEIN (STRIP) 100; SPECIFIC GRAVITY 1.017 (1.000-1.030)
[2017-05-13 06:54] LABS: BACTERIA NONE SEEN /HPF; EPITHELIAL CELLS RARE /HPF; HYALINE CASTS 30-40 /LPF; MUCUS 2+ /LPF; RED BLOOD CELLS 0-5 /HPF (0-5)
[2017-05-13 07:15] LABS: AMPHETAMINE NEGATIVE (500 ng/mL); BARBITURATES NEGATIVE (200 ng/mL); BENZODIAZEPINES NEGATIVE (150 ng/mL); BUPRENORPHINE NEGATIVE (10 ng/mL); COCAINE NEGATIVE (150 ng/mL); METHADONE NEGATIVE (200 ng/mL); METHAMPHETAMINE NEGATIVE (500 ng/mL); OPIATES (MORPHINE) NEGATIVE (100 ng/mL); OXYCODONE NEGATIVE (100 ng/mL); PHENCYCLIDINE NEGATIVE (25 ng/mL); PROPOXYPHENE NEGATIVE (300 ng/mL); THC CANNABINOIDS NEGATIVE (50 ng/mL); TRICYCLIC ANTIDEPRESSANTS NEGATIVE (300 ng/mL)
[2017-05-13 13:47] VITALS: BP 167/97
== END 2017-05-13 13:50 ==
LOC: EME 04:37
PROVIDERS: Emergency Medicine
DX: F20.9 Schizophrenia, unspecified (principal); R45.851 Suicidal ideations; R45.850 Homicidal ideations; Z04.6 Encounter for general psychiatric examination, requested by authority; I10 Essential (primary) hypertension; M10.9 Gout, unspecified; K50.90 Crohn's disease, unspecified, without complications; Z91.5 Personal history of self-harm
CPT/HCPCS: 80053; 81003; 85027; 90837; 99281; 99285; G0480

== ENCOUNTER 2017-05-21 05:23 | Emergency (ER) | payer OTHER ==
[~2017-05-21] VITALS: Ht 180.3 cm; Wt 135.9 kg
[2017-05-21 06:09] LABS: AMPHETAMINE NEGATIVE (500 ng/mL); BARBITURATES NEGATIVE (200 ng/mL); BENZODIAZEPINES NEGATIVE (150 ng/mL); BUPRENORPHINE NEGATIVE (10 ng/mL); COCAINE NEGATIVE (150 ng/mL); METHADONE NEGATIVE (200 ng/mL); METHAMPHETAMINE NEGATIVE (500 ng/mL); OPIATES (MORPHINE) NEGATIVE (100 ng/mL); OXYCODONE NEGATIVE (100 ng/mL); PHENCYCLIDINE NEGATIVE (25 ng/mL); PROPOXYPHENE NEGATIVE (300 ng/mL); THC CANNABINOIDS NEGATIVE (50 ng/mL); TRICYCLIC ANTIDEPRESSANTS NEGATIVE (300 ng/mL)
[2017-05-21 06:56] LABS: HEMATOCRIT 39.1 % (38.0-50.0); HEMOGLOBIN 13.7 G/DL (12.5-16.6); MCH 29.5 PG (29.0-34.0); MCV 84.1 FL (86-99); PLATELET COUNT 170 K/uL (156-360); RBC DIS.WIDTH-CV 13.4 % (11.8-14.6); RBC DIS.WIDTH-SD 40.9 % (39-53); RED BLOOD COUNT 4.65 M/uL (4.00-5.50); WHITE BLOOD COUNT 4.9 K/uL (4.1-10.2)
[2017-05-21 07:33] LABS: CHLORIDE 106 MEQ/L (99-109); GFR ESTIMATE (CALCULATED) > 59 mL/min/ (58.99-99999); GLUCOSE 95 mg/dL (70-99); POTASSIUM 4.3 MEQ/L (3.7-5.4); SODIUM 139 MEQ/L (136-147); UREA NITROGEN (BUN) 12 mg/dL (9-23)
[2017-05-21 08:22] LABS: SERUM ETHYL ALCOHOL < 10 mg/dL
[2017-05-21 09:44] VITALS: BP 164/88
== END 2017-05-21 09:46 | disposition home or self-care (01) ==
LOC: EME 05:23
PROVIDERS: Emergency Medicine Emergency Medical Services
DX: F32.9 Major depressive disorder, single episode, unspecified (principal); F41.9 Anxiety disorder, unspecified; R44.0 Auditory hallucinations; R45.851 Suicidal ideations; Z04.6 Encounter for general psychiatric examination, requested by authority; I10 Essential (primary) hypertension; M10.9 Gout, unspecified; K50.90 Crohn's disease, unspecified, without complications; F25.9 Schizoaffective disorder, unspecified; Z76.5 Malingerer [conscious simulation]; Z91.5 Personal history of self-harm
CPT/HCPCS: 80048; 85027; 90837; 99281; 99284; G0480; J1630

== ENCOUNTER 2017-05-23 02:06 | Emergency (ER) | payer OTHER ==
[~2017-05-23] VITALS: Ht 180.3 cm; Wt 137.7 kg
[2017-05-23 03:03] LABS: HEMATOCRIT 40.4 % (38.0-50.0); HEMOGLOBIN 14.1 G/DL (12.5-16.6); MCH 29.3 PG (29.0-34.0); MCHC 34.9 G/DL (30.0-36.0); PLATELET COUNT 176 K/uL (156-360); RBC DIS.WIDTH-CV 13.3 % (11.8-14.6); RED BLOOD COUNT 4.81 M/uL (4.00-5.50); WHITE BLOOD COUNT 6.3 K/uL (4.1-10.2)
[2017-05-23 03:04] LABS: AMPHETAMINE NEGATIVE (500 ng/mL); BARBITURATES NEGATIVE (200 ng/mL); BENZODIAZEPINES NEGATIVE (150 ng/mL); BUPRENORPHINE NEGATIVE (10 ng/mL); COCAINE NEGATIVE (150 ng/mL); METHADONE NEGATIVE (200 ng/mL); METHAMPHETAMINE NEGATIVE (500 ng/mL); OPIATES (MORPHINE) NEGATIVE (100 ng/mL); OXYCODONE NEGATIVE (100 ng/mL); PHENCYCLIDINE NEGATIVE (25 ng/mL); PROPOXYPHENE NEGATIVE (300 ng/mL); THC CANNABINOIDS NEGATIVE (50 ng/mL); TRICYCLIC ANTIDEPRESSANTS NEGATIVE (300 ng/mL)
[2017-05-23 03:14] LABS: CHLORIDE 104 mEq/L (99-109); POTASSIUM 3.9 mEq/L (3.7-5.4); SODIUM 138 mEq/L (136-147)
[2017-05-23 03:15] LABS: GLUCOSE 96 mg/dL (70-99)
[2017-05-23 03:19] LABS: GFR ESTIMATE (CALCULATED) > 59 mL/min/ (58.99-99999); SERUM ETHYL ALCOHOL < 10 mg/dL
[2017-05-23 03:20] LABS: UREA NITROGEN (BUN) 15 mg/dL (9-23)
[2017-05-23 03:39] VITALS: BP 165/95
== END 2017-05-23 03:39 | disposition home or self-care (01) ==
LOC: EME 02:06
PROVIDERS: Emergency Medicine
DX: F32.9 Major depressive disorder, single episode, unspecified (principal); M10.9 Gout, unspecified; K50.90 Crohn's disease, unspecified, without complications; I10 Essential (primary) hypertension; F25.9 Schizoaffective disorder, unspecified; Z76.5 Malingerer [conscious simulation]; Z91.5 Personal history of self-harm
CPT/HCPCS: 80048; 85027; 90837; G0480

== ENCOUNTER 2017-06-03 05:18 | Emergency (ER) | payer OTHER ==
[~2017-06-03] VITALS: Ht 180.3 cm; Wt 134.9 kg
[2017-06-03 05:58] LABS: APPEARANCE CLEAR ((CLEAR)); BILIRUBIN NEGATIVE; BLOOD NEGATIVE; COLOR YELLOW ((YELLOW)); GLUCOSE (STRIP) NEGATIVE; KETONES NEGATIVE; LEUKOCYTES NEGATIVE; NITRITE NEGATIVE; PROTEIN (STRIP) 30; SPECIFIC GRAVITY 1.012 (1.000-1.030); UCUL ADDED? NO
[2017-06-03 06:06] LABS: AMPHETAMINE NEGATIVE (500 ng/mL); BARBITURATES NEGATIVE (200 ng/mL); BENZODIAZEPINES NEGATIVE (150 ng/mL); BUPRENORPHINE NEGATIVE (10 ng/mL); COCAINE NEGATIVE (150 ng/mL); METHADONE NEGATIVE (200 ng/mL); METHAMPHETAMINE NEGATIVE (500 ng/mL); OPIATES (MORPHINE) NEGATIVE (100 ng/mL); OXYCODONE NEGATIVE (100 ng/mL); PHENCYCLIDINE NEGATIVE (25 ng/mL); PROPOXYPHENE NEGATIVE (300 ng/mL); THC CANNABINOIDS NEGATIVE (50 ng/mL); TRICYCLIC ANTIDEPRESSANTS NEGATIVE (300 ng/mL)
[2017-06-03 07:26] VITALS: BP 128/90
== END 2017-06-03 07:15 | disposition home or self-care (01) ==
LOC: EME 05:18
PROVIDERS: Emergency Medicine
DX: F25.9 Schizoaffective disorder, unspecified (principal); F32.9 Major depressive disorder, single episode, unspecified; F89 Unspecified disorder of psychological development; Z04.6 Encounter for general psychiatric examination, requested by authority; Z76.5 Malingerer [conscious simulation]; I10 Essential (primary) hypertension; K50.90 Crohn's disease, unspecified, without complications; Z91.5 Personal history of self-harm
CPT/HCPCS: 80048; 81003; 85027; 90837; 99281; 99285; G0480

== ENCOUNTER 2017-06-03 12:09 | Emergency (ER) | payer OTHER ==
[~2017-06-03] VITALS: Ht 180.3 cm; Wt 134.6 kg
[2017-06-03 13:08] LABS: HEMATOCRIT 40.7 % (38.0-50.0); HEMOGLOBIN 14.2 G/DL (12.5-16.6); MCH 29.5 PG (29.0-34.0); MCHC 34.9 G/DL (30.0-36.0); MCV 84.6 FL (86-99); PLATELET COUNT 176 K/uL (156-360); RBC DIS.WIDTH-CV 13.5 % (11.8-14.6); RBC DIS.WIDTH-SD 42.1 % (39-53); RED BLOOD COUNT 4.81 M/uL (4.00-5.50); WHITE BLOOD COUNT 6.5 K/uL (4.1-10.2)
[2017-06-03 13:19] LABS: ALBUMIN 3.9 g/dL (3.2-4.8); CHLORIDE 105 mEq/L (99-109); POTASSIUM 3.5 mEq/L (3.7-5.4); SODIUM 142 mEq/L (136-147)
[2017-06-03 13:22] LABS: GLUCOSE 97 mg/dL (70-99); TOTAL PROTEIN 6.9 g/dL (6.4-8.3)
[2017-06-03 13:24] LABS: TOTAL BILIRUBIN 0.8 mg/dL (0.0-1.0)
[2017-06-03 13:25] LABS: ALKALINE PHOSPHATASE 113 IU/L (3-129); SERUM ETHYL ALCOHOL < 10 mg/dL
[2017-06-03 13:26] LABS: CREATININE 1.1 mg/dL (0.6-1.3); GFR ESTIMATE (CALCULATED) > 59 mL/min/ (58.99-99999)
[2017-06-03 13:27] LABS: AST (GOT) 21 IU/L (2-34); UREA NITROGEN (BUN) 14 mg/dL (9-23)
[2017-06-03 13:28] LABS: ALT (GPT) 17 IU/L (3-49)
[2017-06-03 14:49] VITALS: BP 147/89
== END 2017-06-03 14:49 | disposition home or self-care (01) ==
LOC: EME 12:09
PROVIDERS: Emergency Medicine
DX: F20.9 Schizophrenia, unspecified (principal); F32.9 Major depressive disorder, single episode, unspecified; F89 Unspecified disorder of psychological development; Z76.5 Malingerer [conscious simulation]; Z91.5 Personal history of self-harm
CPT/HCPCS: 80053; 85027; 90837; 99281; 99285; G0480

== ENCOUNTER 2017-06-06 05:45 | Emergency (ER) | payer OTHER ==
[~2017-06-06] VITALS: Ht 180.3 cm; Wt 132.7 kg
[2017-06-06 06:46] LABS: BASOPHIL (%) 0.5 % (0-1); EOSINOPHIL (%) 0 % (0-5); HEMATOCRIT 42.8 % (38.0-50.0); HEMOGLOBIN 14.8 G/DL (12.5-16.6); IMMATURE GRANULOCYTE (%) 0.5 % (0.0-0.7); LYMPHOCYTE (%) 23.6 % (15-42); MCH 29.4 PG (29.0-34.0); MCHC 34.6 G/DL (30.0-36.0); MCV 84.9 FL (86-99); MONOCYTE COUNT 0.3 K/uL (0-0.8); NEUTROPHIL (%) 69.4 % (45-76); PLATELET COUNT 177 K/uL (156-360); RBC DIS.WIDTH-CV 13.4 % (11.8-14.6); RBC DIS.WIDTH-SD 41.5 % (39-53); RED BLOOD COUNT 5.04 M/uL (4.00-5.50); WHITE BLOOD COUNT 4.4 K/uL (4.1-10.2)
[2017-06-06 06:56] LABS: CHLORIDE 103 mEq/L (99-109); POTASSIUM 3.8 mEq/L (3.7-5.4); SODIUM 142 mEq/L (136-147)
[2017-06-06 06:57] LABS: APPEARANCE CLEAR ((CLEAR)); BILIRUBIN NEGATIVE; BLOOD NEGATIVE; COLOR YELLOW ((YELLOW)); GLUCOSE (STRIP) NEGATIVE; KETONES NEGATIVE; LEUKOCYTES NEGATIVE; NITRITE NEGATIVE; PROTEIN (STRIP) 30
[2017-06-06 06:58] LABS: GLUCOSE 97 mg/dL (70-99)
[2017-06-06 07:01] LABS: SERUM ETHYL ALCOHOL < 10 mg/dL
[2017-06-06 07:02] LABS: GFR ESTIMATE (CALCULATED) > 59 mL/min/ (58.99-99999)
[2017-06-06 07:03] LABS: UREA NITROGEN (BUN) 7 mg/dL (9-23)
[2017-06-06 07:08] LABS: AMPHETAMINE NEGATIVE (500 ng/mL); BARBITURATES NEGATIVE (200 ng/mL); BENZODIAZEPINES NEGATIVE (150 ng/mL); BUPRENORPHINE NEGATIVE (10 ng/mL); COCAINE NEGATIVE (150 ng/mL); METHADONE NEGATIVE (200 ng/mL); METHAMPHETAMINE NEGATIVE (500 ng/mL); OPIATES (MORPHINE) NEGATIVE (100 ng/mL); OXYCODONE NEGATIVE (100 ng/mL); PHENCYCLIDINE NEGATIVE (25 ng/mL); PROPOXYPHENE NEGATIVE (300 ng/mL); THC CANNABINOIDS NEGATIVE (50 ng/mL); TRICYCLIC ANTIDEPRESSANTS NEGATIVE (300 ng/mL)
[2017-06-06 08:02] VITALS: BP 142/68
== END 2017-06-06 08:04 | disposition home or self-care (01) ==
LOC: EME 05:45
PROVIDERS: Emergency Medicine
DX: F33.9 Major depressive disorder, recurrent, unspecified (principal); I10 Essential (primary) hypertension; K50.90 Crohn's disease, unspecified, without complications; M10.9 Gout, unspecified; F25.9 Schizoaffective disorder, unspecified; Z91.5 Personal history of self-harm; Z87.19 Personal history of other diseases of the digestive system; Z91.040 Latex allergy status
CPT/HCPCS: 80048; 81003; 85025; 99281; 99285; G0480

== ENCOUNTER 2017-06-06 10:45 | Emergency (ER) | payer OTHER ==
[~2017-06-06] VITALS: Ht 154.9 cm; Wt 141.0 kg
[2017-06-06 12:53] VITALS: BP 134/57
== END 2017-06-06 12:55 | disposition home or self-care (01) ==
LOC: EME 10:45
DX: F32.9 Major depressive disorder, single episode, unspecified (principal); Z04.6 Encounter for general psychiatric examination, requested by authority; Z76.5 Malingerer [conscious simulation]; I10 Essential (primary) hypertension; M10.9 Gout, unspecified; F25.9 Schizoaffective disorder, unspecified; Z91.040 Latex allergy status
CPT/HCPCS: 90837; 99281; 99285

== ENCOUNTER 2017-06-07 10:38 | Emergency (ER) | payer OTHER ==
[~2017-06-07] VITALS: Ht 181.6 cm; Wt 131.7 kg
[2017-06-07 11:44] VITALS: BP 142/90
== END 2017-06-07 11:45 | disposition home or self-care (01) ==
LOC: EME 10:38
DX: F20.9 Schizophrenia, unspecified (principal); R45.851 Suicidal ideations; Z76.5 Malingerer [conscious simulation]; Z04.6 Encounter for general psychiatric examination, requested by authority; I10 Essential (primary) hypertension; K50.90 Crohn's disease, unspecified, without complications; Z91.040 Latex allergy status
CPT/HCPCS: 99281; 99284

== ENCOUNTER 2017-06-10 04:48 | Emergency (ER) | payer OTHER ==
[~2017-06-10] VITALS: Ht 180.3 cm; Wt 130.9 kg
[2017-06-10 05:54] VITALS: BP 146/98
== END 2017-06-10 05:55 | disposition home or self-care (01) ==
LOC: EME 04:48
DX: F32.9 Major depressive disorder, single episode, unspecified (principal); Z86.59 Personal history of other mental and behavioral disorders; Z04.6 Encounter for general psychiatric examination, requested by authority; I10 Essential (primary) hypertension; K50.90 Crohn's disease, unspecified, without complications; M10.9 Gout, unspecified; F25.9 Schizoaffective disorder, unspecified; Z91.5 Personal history of self-harm; Z98.890 Other specified postprocedural states; Z91.040 Latex allergy status
CPT/HCPCS: 99281; 99284

== ENCOUNTER 2017-06-14 03:25 | Emergency (ER) | payer OTHER ==
[~2017-06-14] VITALS: Ht 180.3 cm; Wt 139.7 kg
[2017-06-14 04:38] VITALS: BP 176/90
== END 2017-06-14 04:47 | disposition home or self-care (01) ==
LOC: EME 03:25
DX: F25.9 Schizoaffective disorder, unspecified (principal); F32.9 Major depressive disorder, single episode, unspecified; Z76.5 Malingerer [conscious simulation]; Z04.6 Encounter for general psychiatric examination, requested by authority; I10 Essential (primary) hypertension; K50.90 Crohn's disease, unspecified, without complications; Z91.040 Latex allergy status
CPT/HCPCS: 90837; 99281; 99284

== ENCOUNTER 2017-06-19 07:16 | Emergency (ER) | payer OTHER ==
[~2017-06-19] VITALS: Ht 180.3 cm; Wt 129.6 kg
[2017-06-19 08:08] LABS: HEMATOCRIT 38.1 % (38.0-50.0); HEMOGLOBIN 13.2 G/DL (12.5-16.6); MCH 29.9 PG (29.0-34.0); MCHC 34.6 G/DL (30.0-36.0); MCV 86.2 FL (86-99); PLATELET COUNT 148 K/uL (156-360); RBC DIS.WIDTH-CV 13.3 % (11.8-14.6); RBC DIS.WIDTH-SD 41.1 % (39-53); RED BLOOD COUNT 4.42 M/uL (4.00-5.50); WHITE BLOOD COUNT 5.2 K/uL (4.1-10.2)
[2017-06-19 08:41] LABS: TROP-I INTERPRETATION NEGATIVE; TROPONIN-I 0.01 ng/mL (0.0-0.30)
[2017-06-19 09:07] LABS: ALKALINE PHOSPHATASE 71 IU/L (3-129); ALT (GPT) 8 IU/L (3-49); AST (GOT) 12 IU/L (2-34); CHLORIDE 103 MEQ/L (99-109); CREATININE 0.9 MG/DL (0.6-1.3); GFR ESTIMATE (CALCULATED) > 59 mL/min/ (58.99-99999); GLUCOSE 96 mg/dL (70-99); POTASSIUM 4.1 MEQ/L (3.7-5.4); SODIUM 136 MEQ/L (136-147); TOTAL BILIRUBIN 0.8 MG/DL (0.0-1.0); TOTAL PROTEIN 6.7 G/DL (6.4-8.3); UREA NITROGEN (BUN) 17 mg/dL (9-23)
[2017-06-19] MEDS ORDERED: GLUCOPHAGE500 MG PO (10:44)
[2017-06-19] MEDS ORDERED: ZYPREXA15 MG PO (10:44)
[2017-06-19] MEDS ORDERED: TRAZODONE HCL50 MG PO (10:44)
[2017-06-19 11:23] LABS: TROP-I INTERPRETATION NEGATIVE; TROPONIN-I 0.01 ng/mL (0.0-0.30)
[2017-06-19 13:24] VITALS: BP 129/53
== END 2017-06-19 13:25 ==
LOC: EME 07:16
PROVIDERS: Nurse Practitioner Family
DX: R07.9 Chest pain, unspecified (principal); I10 Essential (primary) hypertension; K50.90 Crohn's disease, unspecified, without complications; F25.9 Schizoaffective disorder, unspecified; Z91.040 Latex allergy status
CPT/HCPCS: 71046; 80053; 84484; 85027; 93005; 99281; 99285

== ENCOUNTER 2017-08-03 10:14 | Emergency (ER) | payer OTHER ==
[~2017-08-03] VITALS: Ht 180.3 cm; Wt 144.0 kg
[~2017-08-03 10:14] MED LIST changes: +GLUCOPHAGE500 MG PO; +TRAZODONE HCL50 MG PO; +ZYPREXA15 MG PO
[2017-08-03 11:34] LABS: HEMATOCRIT 42.3 % (38.0-50.0); MCHC 35.5 G/DL (30.0-36.0); MCV 84.6 FL (86-99); PLATELET COUNT 176 K/uL (156-360); RBC DIS.WIDTH-CV 12.9 % (11.8-14.6); RBC DIS.WIDTH-SD 39.8 % (39-53); WHITE BLOOD COUNT 6.5 K/uL (4.1-10.2)
[2017-08-03 11:46] LABS: CHLORIDE 105 mEq/L (99-109); POTASSIUM 3.8 mEq/L (3.7-5.4); SODIUM 141 mEq/L (136-147)
[2017-08-03 11:48] LABS: GLUCOSE 97 mg/dL (70-99)
[2017-08-03 11:51] LABS: CREATININE 1.2 mg/dL (0.6-1.3); GFR ESTIMATE (CALCULATED) > 59 mL/min/ (58.99-99999); SERUM ETHYL ALCOHOL < 10 mg/dL
[2017-08-03 11:52] LABS: UREA NITROGEN (BUN) 9 mg/dL (9-23)
[2017-08-03 12:32] VITALS: BP 159/91
== END 2017-08-03 12:38 | disposition home or self-care (01) ==
LOC: EME 10:14
PROVIDERS: Nurse Practitioner Family
DX: F20.9 Schizophrenia, unspecified (principal); F32.9 Major depressive disorder, single episode, unspecified; R00.0 Tachycardia, unspecified; I10 Essential (primary) hypertension; Z91.5 Personal history of self-harm
CPT/HCPCS: 80048; 85027; 90839; 99281; 99285; G0480

== ENCOUNTER 2017-08-09 01:55 | Emergency (ER) | payer OTHER ==
[~2017-08-09] VITALS: Ht 182.9 cm; Wt 141.0 kg
[2017-08-09 03:15] VITALS: BP 180/96
== END 2017-08-09 03:15 | disposition home or self-care (01) ==
LOC: EME 01:55
DX: F25.9 Schizoaffective disorder, unspecified (principal); F32.9 Major depressive disorder, single episode, unspecified; Z91.5 Personal history of self-harm
CPT/HCPCS: 80048; 81003; 85027; 90837; 99281; 99284; G0480

== ENCOUNTER 2017-08-16 06:50 | Emergency (ER) | payer OTHER ==
[~2017-08-16] VITALS: Ht 175.3 cm; Wt 146.8 kg
[2017-08-16 07:29] LABS: HEMATOCRIT 42.5 % (38.0-50.0); HEMOGLOBIN 14.8 G/DL (12.5-16.6); MCH 29.7 PG (29.0-34.0); MCHC 34.8 G/DL (30.0-36.0); MCV 85.3 FL (86-99); PLATELET COUNT 169 K/uL (156-360); RBC DIS.WIDTH-CV 12.9 % (11.8-14.6); RED BLOOD COUNT 4.98 M/uL (4.00-5.50); WHITE BLOOD COUNT 6.4 K/uL (4.1-10.2)
[2017-08-16 07:42] LABS: CHLORIDE 105 mEq/L (99-109); POTASSIUM 3.8 mEq/L (3.7-5.4); SODIUM 141 mEq/L (136-147)
[2017-08-16 07:44] LABS: GLUCOSE 104 mg/dL (70-99)
[2017-08-16 07:48] LABS: GFR ESTIMATE (CALCULATED) > 59 mL/min/ (58.99-99999)
[2017-08-16 07:49] LABS: UREA NITROGEN (BUN) 11 mg/dL (9-23)
[2017-08-16 07:59] LABS: APPEARANCE CLEAR ((CLEAR)); BILIRUBIN SMALL; BLOOD NEGATIVE; COLOR YELLOW ((YELLOW)); GLUCOSE (STRIP) NEGATIVE; KETONES NEGATIVE; LEUKOCYTES NEGATIVE; NITRITE NEGATIVE; PROTEIN (STRIP) 100; SPECIFIC GRAVITY 1.027 (1.000-1.030)
[2017-08-16 08:11] LABS: AMPHETAMINE NEGATIVE (500 ng/mL); BARBITURATES NEGATIVE (200 ng/mL); BENZODIAZEPINES NEGATIVE (150 ng/mL); BUPRENORPHINE NEGATIVE (10 ng/mL); COCAINE NEGATIVE (150 ng/mL); METHADONE NEGATIVE (200 ng/mL); METHAMPHETAMINE NEGATIVE (500 ng/mL); OPIATES (MORPHINE) NEGATIVE (100 ng/mL); OXYCODONE NEGATIVE (100 ng/mL); PHENCYCLIDINE NEGATIVE (25 ng/mL); PROPOXYPHENE NEGATIVE (300 ng/mL); THC CANNABINOIDS NEGATIVE (50 ng/mL); TRICYCLIC ANTIDEPRESSANTS NEGATIVE (300 ng/mL)
[2017-08-16 08:13] LABS: BACTERIA RARE /HPF; CALCIUM OXALATE CRYSTALS 3+ /HPF; EPITHELIAL CELLS RARE /HPF; MUCUS TRACE /LPF; WHITE BLOOD CELLS 0-5 /HPF (0-5)
[2017-08-16 08:30] VITALS: BP 173/88
== END 2017-08-16 08:37 | disposition home or self-care (01) ==
LOC: EME 06:50
PROVIDERS: Nurse Practitioner Family
DX: F25.9 Schizoaffective disorder, unspecified (principal); R44.0 Auditory hallucinations; Z76.5 Malingerer [conscious simulation]; I10 Essential (primary) hypertension; K50.90 Crohn's disease, unspecified, without complications; F31.9 Bipolar disorder, unspecified; Z91.5 Personal history of self-harm; Z91.040 Latex allergy status
CPT/HCPCS: 80048; 81003; 85027; 90839; 99281; 99284

== ENCOUNTER 2017-08-16 17:43 | Emergency (ER) | payer OTHER ==
[~2017-08-16] VITALS: Ht 181.6 cm; Wt 141.3 kg
[2017-08-16 17:43] VITALS: BP 175/82
== END 2017-08-16 19:53 | disposition home or self-care (01) ==
LOC: EME 17:43
DX: F32.9 Major depressive disorder, single episode, unspecified (principal); F25.9 Schizoaffective disorder, unspecified; Z91.5 Personal history of self-harm; I10 Essential (primary) hypertension; K50.90 Crohn's disease, unspecified, without complications; Z91.040 Latex allergy status
CPT/HCPCS: 90837; 99281; 99285; G0480

== ENCOUNTER 2017-08-17 02:44 | Emergency (ER) | payer OTHER ==
[~2017-08-17] VITALS: Ht 180.3 cm; Wt 148.1 kg
[2017-08-17 03:07] LABS: BASOPHIL (%) 0.4 % (0-1); EOSINOPHIL (%) 0.3 % (0-5); HEMATOCRIT 41.8 % (38.0-50.0); HEMOGLOBIN 14.3 G/DL (12.5-16.6); IMMATURE GRANULOCYTE (%) 0.3 % (0.0-0.7); LYMPHOCYTE (%) 18.7 % (15-42); LYMPHOCYTE COUNT 1.4 K/uL (1.0-2.8); MCH 29.2 PG (29.0-34.0); MCHC 34.2 G/DL (30.0-36.0); MCV 85.5 FL (86-99); MONOCYTE (%) 8.1 % (3-12); MONOCYTE COUNT 0.6 K/uL (0-0.8); NEUTROPHIL (%) 72.2 % (45-76); NEUTROPHIL COUNT 5.2 K/uL (1.8-6.4); PLATELET COUNT 188 K/uL (156-360); RBC DIS.WIDTH-SD 40.4 % (39-53); RED BLOOD COUNT 4.89 M/uL (4.00-5.50); WHITE BLOOD COUNT 7.3 K/uL (4.1-10.2)
[2017-08-17 03:19] LABS: ALBUMIN 4.5 g/dL (3.2-4.8); CHLORIDE 102 mEq/L (99-109); POTASSIUM 3.4 mEq/L (3.7-5.4); SODIUM 139 mEq/L (136-147)
[2017-08-17 03:21] LABS: GLUCOSE 101 mg/dL (70-99); TOTAL PROTEIN 7.6 g/dL (6.4-8.3)
[2017-08-17 03:23] LABS: TOTAL BILIRUBIN 0.8 mg/dL (0.0-1.0)
[2017-08-17 03:24] LABS: SERUM ETHYL ALCOHOL < 10 mg/dL
[2017-08-17 03:25] LABS: ALKALINE PHOSPHATASE 95 IU/L (3-129); CREATININE 1.1 mg/dL (0.6-1.3); GFR ESTIMATE (CALCULATED) > 59 mL/min/ (58.99-99999)
[2017-08-17 03:26] LABS: UREA NITROGEN (BUN) 13 mg/dL (9-23)
[2017-08-17 03:27] LABS: AST (GOT) 46 IU/L (2-34)
[2017-08-17 03:28] LABS: ALT (GPT) 18 IU/L (3-49)
[2017-08-17 03:43] LABS: AMPHETAMINE NEGATIVE (500 ng/mL); BARBITURATES NEGATIVE (200 ng/mL); BENZODIAZEPINES NEGATIVE (150 ng/mL); BUPRENORPHINE NEGATIVE (10 ng/mL); COCAINE NEGATIVE (150 ng/mL); METHADONE NEGATIVE (200 ng/mL); METHAMPHETAMINE NEGATIVE (500 ng/mL); OPIATES (MORPHINE) NEGATIVE (100 ng/mL); OXYCODONE NEGATIVE (100 ng/mL); PHENCYCLIDINE NEGATIVE (25 ng/mL); PROPOXYPHENE NEGATIVE (300 ng/mL); THC CANNABINOIDS NEGATIVE (50 ng/mL); TRICYCLIC ANTIDEPRESSANTS NEGATIVE (300 ng/mL)
[2017-08-17 04:00] VITALS: BP 167/115
[2017-08-18] MEDS ORDERED: METFORMIN HCL500 MG PO (12:43)
[2017-08-18] MEDS ORDERED: DESYREL100 MG PO (12:43)
[2017-08-18] MEDS ORDERED: RISPERDAL25 MG/2 ML IM (12:43)
[2017-08-18] MEDS ORDERED: RISPERIDONE3 MG PO (12:43)
[2017-08-18] MEDS ORDERED: DULOXETINE HCL60 MG PO (12:45)
[2017-08-18] MEDS ORDERED: ARIPIPRAZOLE10 MG PO (12:46)
== END 2017-08-17 04:19 | disposition home or self-care (01) ==
LOC: EME 02:44
PROVIDERS: Emergency Medicine
DX: F25.9 Schizoaffective disorder, unspecified (principal); Z76.5 Malingerer [conscious simulation]; I10 Essential (primary) hypertension; K50.90 Crohn's disease, unspecified, without complications; Z91.5 Personal history of self-harm; Z87.19 Personal history of other diseases of the digestive system; Z91.040 Latex allergy status
CPT/HCPCS: 80053; 85025; 90839; 99281; 99283; G0480

== ENCOUNTER 2017-08-18 03:04 | Observation (INO) | payer OTHER ==
[~2017-08-18] VITALS: Ht 180.3 cm; Wt 143.6 kg
[2017-08-18 03:36] LABS: HEMOGLOBIN 15.2 G/DL (12.5-16.6); MCH 29.7 PG (29.0-34.0); MCHC 34.5 G/DL (30.0-36.0); MCV 85.9 FL (86-99); PLATELET COUNT 214 K/uL (156-360); RBC DIS.WIDTH-CV 13.1 % (11.8-14.6); RBC DIS.WIDTH-SD 41.1 % (39-53); RED BLOOD COUNT 5.12 M/uL (4.00-5.50); WHITE BLOOD COUNT 10.5 K/uL (4.1-10.2)
[2017-08-18 04:01] LABS: ALBUMIN 4.7 g/dL (3.2-4.8); CHLORIDE 109 mEq/L (99-109); POTASSIUM 3.9 mEq/L (3.7-5.4); SODIUM 145 mEq/L (136-147)
[2017-08-18 04:03] LABS: GLUCOSE 105 mg/dL (70-99); TOTAL PROTEIN 7.9 g/dL (6.4-8.3)
[2017-08-18 04:07] LABS: ALKALINE PHOSPHATASE 97 IU/L (3-129); CREATININE 1.4 mg/dL (0.6-1.3); GFR ESTIMATE (CALCULATED) > 59 mL/min/ (58.99-99999)
[2017-08-18 04:10] LABS: ALT (GPT) 27 IU/L (3-49)
[2017-08-18 04:11] LABS: AST (GOT) 85 IU/L (2-34); TOTAL BILIRUBIN 1.4 mg/dL (0.0-1.0); UREA NITROGEN (BUN) 27 mg/dL (9-23)
[2017-08-18 04:43] LABS: CREATINE KINASE 3318 IU/L (1-294)
[2017-08-18 08:56] VITALS: BP 120/53
[2017-08-18 11:18] VITALS: BP 154/83
[2017-08-18] MEDS ORDERED: DESYREL100 MG PO (12:43)
[2017-08-18] MEDS ORDERED: METFORMIN HCL500 MG PO (12:43)
[2017-08-18] MEDS ORDERED: RISPERDAL25 MG/2 ML IM (12:43)
[2017-08-18] MEDS ORDERED: RISPERIDONE3 MG PO (12:43)
[2017-08-18] MEDS ORDERED: DULOXETINE HCL60 MG PO (12:45)
[2017-08-18] MEDS ORDERED: ARIPIPRAZOLE10 MG PO (12:46)
[2017-08-18 16:02] VITALS: BP 139/79
[2017-08-18 20:04] LABS: APPEARANCE CLEAR ((CLEAR)); BILIRUBIN NEGATIVE; BLOOD NEGATIVE; COLOR YELLOW ((YELLOW)); GLUCOSE (STRIP) NEGATIVE; KETONES NEGATIVE; LEUKOCYTES NEGATIVE; NITRITE NEGATIVE; PROTEIN (STRIP) 100; SPECIFIC GRAVITY 1.033 (1.000-1.030); UROBILINOGEN 0.2 MG/DL (0.2-1.0)
[2017-08-18 20:10] LABS: BACTERIA RARE /HPF; EPITHELIAL CELLS RARE /HPF; MUCUS TRACE /LPF; RED BLOOD CELLS 0-5 /HPF (0-5); WHITE BLOOD CELLS 0-5 /HPF (0-5)
[2017-08-18 23:30] VITALS: BP 169/101
[2017-08-19 00:39] VITALS: BP 193/86
[2017-08-19 00:57] VITALS: BP 138/88
[2017-08-19 03:49] VITALS: BP 135/64
[2017-08-19 05:44] LABS: HEMATOCRIT 36.7 % (38.0-50.0); HEMOGLOBIN 11.9 G/DL (12.5-16.6); MCH 28.6 PG (29.0-34.0); MCHC 32.4 G/DL (30.0-36.0); MCV 88.2 FL (86-99); PLATELET COUNT 172 K/uL (156-360); RBC DIS.WIDTH-CV 13.2 % (11.8-14.6); RED BLOOD COUNT 4.16 M/uL (4.00-5.50)
[2017-08-19 06:11] LABS: ALBUMIN 3.6 G/DL (3.2-4.8); ALKALINE PHOSPHATASE 63 IU/L (3-129); ALT (GPT) 15 IU/L (3-49); AST (GOT) 32 IU/L (2-34); CHLORIDE 111 MEQ/L (99-109); GLUCOSE 87 mg/dL (70-99); POTASSIUM 3.6 MEQ/L (3.7-5.4); SODIUM 142 MEQ/L (136-147); TOTAL BILIRUBIN 0.8 MG/DL (0.0-1.0); TOTAL PROTEIN 5.8 G/DL (6.4-8.3); UREA NITROGEN (BUN) 20 mg/dL (9-23)
[2017-08-19 06:13] LABS: CREATININE 0.9 MG/DL (0.6-1.3); GFR ESTIMATE (CALCULATED) > 59 mL/min/ (58.99-99999)
[2017-08-19 10:54] LABS: CREATINE KINASE 565 IU/L (1-294)
[2017-08-19] MEDS ORDERED: OLANZAPINE10 MG PO (11:18)
[2017-08-19 11:36] VITALS: BP 168/88
[2017-08-21 09:18] LABS: HEMOGLOBIN A1c (GLYCOHEMOGLOB) 5.2 % (Below 5.7)
== END 2017-08-19 13:24 | disposition home or self-care (01) ==
LOC: EME 03:04 → 4SOUTH 07:40 → EDOF 07:40 → ENRESERV 07:41 → 4SOUTH 08:38 → ENPENDDIS 08-19 11:26 → 4SOUTH 08-19 13:24
PROVIDERS: Physician Assistant
DX: N17.9 Acute kidney failure, unspecified (principal); M62.82 Rhabdomyolysis; F25.9 Schizoaffective disorder, unspecified; Z76.5 Malingerer [conscious simulation]; R45.851 Suicidal ideations; F79 Unspecified intellectual disabilities; E86.0 Dehydration; Z56.0 Unemployment, unspecified; I10 Essential (primary) hypertension; M10.9 Gout, unspecified; Z91.5 Personal history of self-harm; Z79.84 Long term (current) use of oral hypoglycemic drugs
CPT/HCPCS: 80053; 81003; 82550; 82550 91; 83036; 85027; 93005; 99281; 99284; G0378; J1644; J7030

== ENCOUNTER 2017-08-23 11:11 | Emergency (ER) | payer OTHER ==
[~2017-08-23] VITALS: Ht 180.3 cm; Wt 100.0 kg
[~2017-08-23 11:11] MED LIST changes: +ARIPIPRAZOLE10 MG PO; +DESYREL100 MG PO; +METFORMIN HCL500 MG PO; +OLANZAPINE10 MG PO; +RISPERDAL25 MG/2 ML IM; +RISPERIDONE3 MG PO
[2017-08-23 11:50] LABS: APPEARANCE CLEAR ((CLEAR)); BILIRUBIN NEGATIVE; BLOOD NEGATIVE; COLOR YELLOW ((YELLOW)); GLUCOSE (STRIP) NEGATIVE; KETONES NEGATIVE; LEUKOCYTES NEGATIVE; NITRITE NEGATIVE; PROTEIN (STRIP) 30; SPECIFIC GRAVITY 1.021 (1.000-1.030)
[2017-08-23 12:47] LABS: BASOPHIL (%) 0.3 % (0-1); EOSINOPHIL (%) 0.6 % (0-5); HEMATOCRIT 41.1 % (38.0-50.0); IMMATURE GRANULOCYTE (%) 0.3 % (0.0-0.7); LYMPHOCYTE (%) 15.5 % (15-42); MCH 29.4 PG (29.0-34.0); MCHC 34.3 G/DL (30.0-36.0); MCV 85.8 FL (86-99); MONOCYTE (%) 5.5 % (3-12); MONOCYTE COUNT 0.4 K/uL (0-0.8); NEUTROPHIL (%) 77.8 % (45-76); NEUTROPHIL COUNT 5.1 K/uL (1.8-6.4); PLATELET COUNT 206 K/uL (156-360); RBC DIS.WIDTH-CV 12.9 % (11.8-14.6); RED BLOOD COUNT 4.79 M/uL (4.00-5.50); WHITE BLOOD COUNT 6.6 K/uL (4.1-10.2)
[2017-08-23 12:49] LABS: HEMOGLOBIN 14.1 G/DL (12.5-16.6)
[2017-08-23 12:54] LABS: CHLORIDE 107 mEq/L (99-109); POTASSIUM 4.1 mEq/L (3.7-5.4); SODIUM 143 mEq/L (136-147)
[2017-08-23 12:56] LABS: GLUCOSE 86 mg/dL (70-99)
[2017-08-23 13:00] LABS: GFR ESTIMATE (CALCULATED) > 59 mL/min/ (58.99-99999)
[2017-08-23 13:01] LABS: UREA NITROGEN (BUN) 8 mg/dL (9-23)
[2017-08-23] MEDS ORDERED: MOTRIN800 MG PO (13:34)
[2017-08-23 13:53] VITALS: BP 145/86
== END 2017-08-23 13:55 | disposition home or self-care (01) ==
LOC: EME 11:11
PROVIDERS: Emergency Medicine
DX: S39.012A Strain of muscle, fascia and tendon of lower back, initial encounter (principal); R10.9 Unspecified abdominal pain; I10 Essential (primary) hypertension; F25.9 Schizoaffective disorder, unspecified; Z79.84 Long term (current) use of oral hypoglycemic drugs; K50.90 Crohn's disease, unspecified, without complications; M10.9 Gout, unspecified; Z91.040 Latex allergy status
CPT/HCPCS: 74176; 80048; 81003; 85025; 99281; 99285

== ENCOUNTER 2017-08-24 10:34 | Emergency (ER) | payer OTHER ==
[~2017-08-24] VITALS: Ht 175.3 cm; Wt 142.7 kg
[2017-08-24 12:56] LABS: HEMATOCRIT 41.6 % (38.0-50.0); HEMOGLOBIN 14.3 G/DL (12.5-16.6); MCH 29.5 PG (29.0-34.0); MCHC 34.4 G/DL (30.0-36.0); PLATELET COUNT 208 K/uL (156-360); RBC DIS.WIDTH-CV 12.8 % (11.8-14.6); RBC DIS.WIDTH-SD 40.1 % (39-53); RED BLOOD COUNT 4.84 M/uL (4.00-5.50); WHITE BLOOD COUNT 5.9 K/uL (4.1-10.2)
[2017-08-24 13:09] LABS: ALBUMIN 4.1 g/dL (3.2-4.8); CHLORIDE 107 mEq/L (99-109); POTASSIUM 4.3 mEq/L (3.7-5.4); SODIUM 143 mEq/L (136-147)
[2017-08-24 13:12] LABS: GLUCOSE 95 mg/dL (70-99); TOTAL PROTEIN 7.3 g/dL (6.4-8.3)
[2017-08-24 13:15] LABS: ALKALINE PHOSPHATASE 87 IU/L (3-129); CREATININE 1.2 mg/dL (0.6-1.3); GFR ESTIMATE (CALCULATED) > 59 mL/min/ (58.99-99999); TOTAL BILIRUBIN 0.7 mg/dL (0.0-1.0)
[2017-08-24 13:16] LABS: UREA NITROGEN (BUN) 13 mg/dL (9-23)
[2017-08-24 13:18] LABS: ALT (GPT) 18 IU/L (3-49); AST (GOT) 20 IU/L (2-34); TOTAL CK 106 IU/L (1-294)
[2017-08-24 13:20] LABS: CREATINE KINASE 106 IU/L (1-294)
[2017-08-24 13:27] LABS: CK-MB 1.5 ng/mL (0.0-4.9); CKMB RELATIVE INDEX 1.4 (0.0-3.9)
[2017-08-24 14:17] VITALS: BP 141/100
== END 2017-08-24 14:17 | disposition home or self-care (01) ==
LOC: EME 10:34
PROVIDERS: Nurse Practitioner Family
DX: R25.1 Tremor, unspecified (principal); F20.9 Schizophrenia, unspecified; F32.9 Major depressive disorder, single episode, unspecified; R11.0 Nausea; R06.02 Shortness of breath; Z79.84 Long term (current) use of oral hypoglycemic drugs
CPT/HCPCS: 80053; 81003; 82550; 82553; 85027; 99281; 99284

== ENCOUNTER 2017-08-26 07:08 | Emergency (ER) | payer OTHER ==
[~2017-08-26] VITALS: Ht 180.3 cm; Wt 144.0 kg
[2017-08-26 08:05] LABS: BASOPHIL (%) 0.4 % (0-1); EOSINOPHIL (%) 1.2 % (0-5); EOSINOPHIL COUNT 0.1 K/uL (0-0.3); HEMATOCRIT 44.5 % (38.0-50.0); HEMOGLOBIN 15.2 G/DL (12.5-16.6); IMMATURE GRANULOCYTE (%) 0.4 % (0.0-0.7); LYMPHOCYTE (%) 18.5 % (15-42); LYMPHOCYTE COUNT 0.9 K/uL (1.0-2.8); MCH 29.3 PG (29.0-34.0); MCHC 34.2 G/DL (30.0-36.0); MCV 85.7 FL (86-99); MONOCYTE (%) 4.7 % (3-12); MONOCYTE COUNT 0.2 K/uL (0-0.8); NEUTROPHIL (%) 74.8 % (45-76); NEUTROPHIL COUNT 3.8 K/uL (1.8-6.4); PLATELET COUNT 224 K/uL (156-360); RBC DIS.WIDTH-CV 12.7 % (11.8-14.6); RBC DIS.WIDTH-SD 39.5 % (39-53); RED BLOOD COUNT 5.19 M/uL (4.00-5.50); WHITE BLOOD COUNT 5.1 K/uL (4.1-10.2)
[2017-08-26 08:13] LABS: CHLORIDE 105 mEq/L (99-109); SODIUM 140 mEq/L (136-147)
[2017-08-26 08:15] LABS: GLUCOSE 96 mg/dL (70-99)
[2017-08-26 08:18] LABS: SERUM ETHYL ALCOHOL < 10 mg/dL
[2017-08-26 08:19] LABS: CREATININE 1.1 mg/dL (0.6-1.3); GFR ESTIMATE (CALCULATED) > 59 mL/min/ (58.99-99999)
[2017-08-26 08:20] LABS: UREA NITROGEN (BUN) 13 mg/dL (9-23)
[2017-08-26 09:00] LABS: AMPHETAMINE NEGATIVE (500 ng/mL); BARBITURATES NEGATIVE (200 ng/mL); BENZODIAZEPINES NEGATIVE (150 ng/mL); BUPRENORPHINE NEGATIVE (10 ng/mL); COCAINE NEGATIVE (150 ng/mL); METHADONE NEGATIVE (200 ng/mL); METHAMPHETAMINE NEGATIVE (500 ng/mL); OPIATES (MORPHINE) NEGATIVE (100 ng/mL); OXYCODONE NEGATIVE (100 ng/mL); PHENCYCLIDINE NEGATIVE (25 ng/mL); PROPOXYPHENE NEGATIVE (300 ng/mL); THC CANNABINOIDS NEGATIVE (50 ng/mL); TRICYCLIC ANTIDEPRESSANTS NEGATIVE (300 ng/mL)
[2017-08-26 10:00] VITALS: BP 166/78
== END 2017-08-26 10:02 | disposition home or self-care (01) ==
LOC: EME 07:08
PROVIDERS: Emergency Medicine
DX: F32.9 Major depressive disorder, single episode, unspecified (principal); R44.0 Auditory hallucinations; F79 Unspecified intellectual disabilities; I10 Essential (primary) hypertension; Z91.5 Personal history of self-harm
CPT/HCPCS: 80048; 85025; 90837; 99281; 99285; G0480

== ENCOUNTER 2017-08-29 05:26 | Emergency (ER) | payer OTHER ==
[~2017-08-29] VITALS: Ht 180.3 cm; Wt 144.0 kg
[2017-08-29 06:55] LABS: BASOPHIL (%) 0.2 % (0-1); EOSINOPHIL (%) 0.2 % (0-5); HEMATOCRIT 45.2 % (38.0-50.0); HEMOGLOBIN 15.5 G/DL (12.5-16.6); IMMATURE GRANULOCYTE (%) 0.3 % (0.0-0.7); LYMPHOCYTE (%) 13.4 % (15-42); LYMPHOCYTE COUNT 0.8 K/uL (1.0-2.8); MCH 29.2 PG (29.0-34.0); MCHC 34.3 G/DL (30.0-36.0); MCV 85.1 FL (86-99); MONOCYTE (%) 4.2 % (3-12); MONOCYTE COUNT 0.3 K/uL (0-0.8); NEUTROPHIL (%) 81.7 % (45-76); NEUTROPHIL COUNT 5.1 K/uL (1.8-6.4); PLATELET COUNT 198 K/uL (156-360); RBC DIS.WIDTH-CV 12.7 % (11.8-14.6); RBC DIS.WIDTH-SD 39.1 % (39-53); RED BLOOD COUNT 5.31 M/uL (4.00-5.50); WHITE BLOOD COUNT 6.2 K/uL (4.1-10.2)
[2017-08-29 07:11] LABS: APPEARANCE CLEAR ((CLEAR)); BILIRUBIN NEGATIVE; BLOOD NEGATIVE; COLOR YELLOW ((YELLOW)); GLUCOSE (STRIP) NEGATIVE; KETONES NEGATIVE; LEUKOCYTES NEGATIVE; NITRITE NEGATIVE; PROTEIN (STRIP) NEGATIVE; SPECIFIC GRAVITY 1.009 (1.000-1.030); UROBILINOGEN 0.2 MG/DL (0.2-1.0)
[2017-08-29 07:30] LABS: CHLORIDE 105 MEQ/L (99-109); CREATININE 1.1 MG/DL (0.6-1.3); GFR ESTIMATE (CALCULATED) > 59 mL/min/ (58.99-99999); GLUCOSE 95 mg/dL (70-99); POTASSIUM 3.8 MEQ/L (3.7-5.4); SERUM ETHYL ALCOHOL < 10 mg/dL; SODIUM 140 MEQ/L (136-147); UREA NITROGEN (BUN) 12 mg/dL (9-23)
[2017-08-29 07:55] LABS: AMPHETAMINE NEGATIVE (500 ng/mL); BARBITURATES NEGATIVE (200 ng/mL); BENZODIAZEPINES NEGATIVE (150 ng/mL); BUPRENORPHINE NEGATIVE (10 ng/mL); COCAINE NEGATIVE (150 ng/mL); METHADONE NEGATIVE (200 ng/mL); METHAMPHETAMINE NEGATIVE (500 ng/mL); OPIATES (MORPHINE) NEGATIVE (100 ng/mL); OXYCODONE NEGATIVE (100 ng/mL); PHENCYCLIDINE NEGATIVE (25 ng/mL); PROPOXYPHENE NEGATIVE (300 ng/mL); THC CANNABINOIDS NEGATIVE (50 ng/mL); TRICYCLIC ANTIDEPRESSANTS NEGATIVE (300 ng/mL)
[2017-08-29 10:00] VITALS: BP 160/100
== END 2017-08-29 10:43 | disposition home or self-care (01) ==
LOC: EME 05:26
PROVIDERS: Emergency Medicine
DX: F41.9 Anxiety disorder, unspecified (principal); F32.9 Major depressive disorder, single episode, unspecified; F79 Unspecified intellectual disabilities; Z04.6 Encounter for general psychiatric examination, requested by authority; Z76.5 Malingerer [conscious simulation]; I10 Essential (primary) hypertension; K50.90 Crohn's disease, unspecified, without complications; F25.9 Schizoaffective disorder, unspecified; Z91.5 Personal history of self-harm; Z79.84 Long term (current) use of oral hypoglycemic drugs; Z91.040 Latex allergy status
CPT/HCPCS: 80048; 81003; 85025; 90837; 99281; 99285; G0480

== ENCOUNTER 2017-09-01 04:06 | Emergency (ER) | payer OTHER ==
[~2017-09-01] VITALS: Ht 180.3 cm; Wt 140.9 kg
[2017-09-01 04:57] LABS: APPEARANCE CLEAR ((CLEAR)); BILIRUBIN NEGATIVE; BLOOD NEGATIVE; COLOR YELLOW ((YELLOW)); GLUCOSE (STRIP) NEGATIVE; KETONES NEGATIVE; LEUKOCYTES NEGATIVE; NITRITE NEGATIVE; PROTEIN (STRIP) NEGATIVE; SPECIFIC GRAVITY 1.015 (1.000-1.030); UCUL ADDED? NO
[2017-09-01 04:59] LABS: HEMATOCRIT 43.3 % (38.0-50.0); MCH 29.3 PG (29.0-34.0); MCHC 34.6 G/DL (30.0-36.0); MCV 84.6 FL (86-99); PLATELET COUNT 209 K/uL (156-360); RBC DIS.WIDTH-CV 12.5 % (11.8-14.6); RBC DIS.WIDTH-SD 38.3 % (39-53); RED BLOOD COUNT 5.12 M/uL (4.00-5.50); WHITE BLOOD COUNT 5.1 K/uL (4.1-10.2)
[2017-09-01 05:19] LABS: CHLORIDE 105 mEq/L (99-109); POTASSIUM 3.9 mEq/L (3.7-5.4); SODIUM 142 mEq/L (136-147)
[2017-09-01 05:21] LABS: GLUCOSE 94 mg/dL (70-99)
[2017-09-01 05:25] LABS: CREATININE 1.1 mg/dL (0.6-1.3); GFR ESTIMATE (CALCULATED) > 59 mL/min/ (58.99-99999)
[2017-09-01 05:26] LABS: UREA NITROGEN (BUN) 12 mg/dL (9-23)
[2017-09-01 05:47] VITALS: BP 145/92
== END 2017-09-01 05:49 | disposition home or self-care (01) ==
LOC: EME → EDBD 04:06 → EME 05:49
PROVIDERS: Emergency Medicine
DX: K59.00 Constipation, unspecified (principal); I10 Essential (primary) hypertension; K50.90 Crohn's disease, unspecified, without complications; F25.9 Schizoaffective disorder, unspecified; Z91.040 Latex allergy status
CPT/HCPCS: 80048; 81003; 85027; 99281; 99284

== ENCOUNTER 2017-09-03 05:22 | Emergency (ER) | payer OTHER ==
[~2017-09-03] VITALS: Ht 180.3 cm; Wt 139.0 kg
[2017-09-03 06:50] VITALS: BP 142/125
== END 2017-09-03 06:21 | disposition home or self-care (01) ==
LOC: EME 05:22
DX: F25.9 Schizoaffective disorder, unspecified (principal); F32.9 Major depressive disorder, single episode, unspecified; M25.562 Pain in left knee; R44.0 Auditory hallucinations; I10 Essential (primary) hypertension; K50.90 Crohn's disease, unspecified, without complications; Z91.5 Personal history of self-harm; Z87.39 Personal history of other diseases of the musculoskeletal system and connective tissue; Z87.19 Personal history of other diseases of the digestive system; Z91.040 Latex allergy status
CPT/HCPCS: 80048; 85027; 99281; 99283; G0480

== ENCOUNTER 2017-09-06 02:56 | Emergency (ER) | payer OTHER ==
[~2017-09-06] VITALS: Ht 180.3 cm; Wt 141.3 kg
[2017-09-06 03:30] VITALS: BP 141/92
== END 2017-09-06 03:30 | disposition home or self-care (01) ==
LOC: EME 02:56
DX: M25.562 Pain in left knee (principal); G89.29 Other chronic pain; F20.9 Schizophrenia, unspecified; F32.9 Major depressive disorder, single episode, unspecified; Z91.040 Latex allergy status
CPT/HCPCS: 99281; 99283

== ENCOUNTER 2017-09-07 05:51 | Emergency (ER) | payer OTHER ==
[~2017-09-07] VITALS: Ht 180.3 cm; Wt 141.2 kg
[2017-09-07 07:03] LABS: APPEARANCE CLEAR ((CLEAR)); BILIRUBIN NEGATIVE; BLOOD NEGATIVE; COLOR YELLOW ((YELLOW)); GLUCOSE (STRIP) NEGATIVE; KETONES NEGATIVE; LEUKOCYTES NEGATIVE; NITRITE NEGATIVE; PROTEIN (STRIP) NEGATIVE; SPECIFIC GRAVITY 1.014 (1.000-1.030)
[2017-09-07 07:03] LABS: BASOPHIL (%) 0.3 % (0-1); EOSINOPHIL (%) 0 % (0-5); HEMATOCRIT 45.1 % (38.0-50.0); HEMOGLOBIN 15.6 G/DL (12.5-16.6); IMMATURE GRANULOCYTE (%) 0.2 % (0.0-0.7); LYMPHOCYTE (%) 18.5 % (15-42); LYMPHOCYTE COUNT 1.1 K/uL (1.0-2.8); MCH 29.3 PG (29.0-34.0); MCHC 34.6 G/DL (30.0-36.0); MCV 84.6 FL (86-99); MONOCYTE COUNT 0.4 K/uL (0-0.8); NEUTROPHIL COUNT 4.3 K/uL (1.8-6.4); PLATELET COUNT 216 K/uL (156-360); RBC DIS.WIDTH-CV 12.8 % (11.8-14.6); RBC DIS.WIDTH-SD 39.4 % (39-53); RED BLOOD COUNT 5.33 M/uL (4.00-5.50); WHITE BLOOD COUNT 5.8 K/uL (4.1-10.2)
[2017-09-07 07:34] LABS: AMPHETAMINE NEGATIVE (500 ng/mL); BARBITURATES NEGATIVE (200 ng/mL); BENZODIAZEPINES NEGATIVE (150 ng/mL); BUPRENORPHINE NEGATIVE (10 ng/mL); COCAINE NEGATIVE (150 ng/mL); METHADONE NEGATIVE (200 ng/mL); METHAMPHETAMINE NEGATIVE (500 ng/mL); OPIATES (MORPHINE) NEGATIVE (100 ng/mL); OXYCODONE NEGATIVE (100 ng/mL); PHENCYCLIDINE NEGATIVE (25 ng/mL); PROPOXYPHENE NEGATIVE (300 ng/mL); THC CANNABINOIDS NEGATIVE (50 ng/mL); TRICYCLIC ANTIDEPRESSANTS NEGATIVE (300 ng/mL)
[2017-09-07 07:39] LABS: CHLORIDE 104 MEQ/L (99-109); CREATININE 1.1 MG/DL (0.6-1.3); GFR ESTIMATE (CALCULATED) > 59 mL/min/ (58.99-99999); GLUCOSE 97 mg/dL (70-99); SERUM ETHYL ALCOHOL < 10 mg/dL; SODIUM 140 MEQ/L (136-147); UREA NITROGEN (BUN) 10 mg/dL (9-23)
[2017-09-07 08:33] VITALS: BP 149/80
== END 2017-09-07 08:45 | disposition home or self-care (01) ==
LOC: EME 05:51
PROVIDERS: Emergency Medicine
DX: F32.9 Major depressive disorder, single episode, unspecified (principal); F41.9 Anxiety disorder, unspecified; R41.9 Unspecified symptoms and signs involving cognitive functions and awareness; Z76.5 Malingerer [conscious simulation]; F20.9 Schizophrenia, unspecified; I10 Essential (primary) hypertension; Z91.040 Latex allergy status
CPT/HCPCS: 80048; 81003; 85025; 90837; 99281; 99285; G0480

== ENCOUNTER 2017-09-08 05:05 | Emergency (ER) | payer OTHER ==
[~2017-09-08] VITALS: Ht 180.3 cm; Wt 141.0 kg
[2017-09-08 05:56] VITALS: BP 110/46
== END 2017-09-08 05:57 | disposition home or self-care (01) ==
LOC: EME 05:05
DX: R45.851 Suicidal ideations (principal); Z79.84 Long term (current) use of oral hypoglycemic drugs
CPT/HCPCS: 90837; 99281; 99283

== ENCOUNTER 2017-09-08 14:39 | Emergency (ER) | payer OTHER ==
[~2017-09-08] VITALS: Ht 180.3 cm; Wt 141.3 kg
[2017-09-08 17:15] VITALS: BP 134/91
== END 2017-09-08 17:38 | disposition home or self-care (01) ==
LOC: EME 14:39
DX: F32.9 Major depressive disorder, single episode, unspecified (principal); L89.892 Pressure ulcer of other site, stage 2; R44.0 Auditory hallucinations; F79 Unspecified intellectual disabilities; R00.0 Tachycardia, unspecified; E11.9 Type 2 diabetes mellitus without complications; Z79.84 Long term (current) use of oral hypoglycemic drugs
CPT/HCPCS: 73630; 90837; 99281; 99284

== ENCOUNTER 2017-09-08 20:12 | Emergency (ER) | payer OTHER ==
[~2017-09-08] VITALS: Ht 180.3 cm; Wt 141.2 kg
[2017-09-08 21:07] LABS: CHLORIDE 108 mEq/L (99-109); POTASSIUM 3.9 mEq/L (3.7-5.4); SODIUM 140 mEq/L (136-147)
[2017-09-08 21:09] LABS: GLUCOSE 100 mg/dL (70-99)
[2017-09-08 21:12] LABS: SERUM ETHYL ALCOHOL < 10 mg/dL
[2017-09-08 21:13] LABS: CREATININE 1.3 mg/dL (0.6-1.3); GFR ESTIMATE (CALCULATED) > 59 mL/min/ (58.99-99999); UREA NITROGEN (BUN) 15 mg/dL (9-23)
[2017-09-08 21:19] LABS: TROP-I INTERPRETATION NEGATIVE; TROPONIN-I 0.01 ng/mL (0.0-0.30)
[2017-09-08 21:21] LABS: HEMATOCRIT 43.9 % (38.0-50.0); HEMOGLOBIN 15.3 G/DL (12.5-16.6); MCHC 34.9 G/DL (30.0-36.0); MCV 83.3 FL (86-99); PLATELET COUNT 215 K/uL (156-360); RBC DIS.WIDTH-CV 12.9 % (11.8-14.6); RED BLOOD COUNT 5.27 M/uL (4.00-5.50); WHITE BLOOD COUNT 7.3 K/uL (4.1-10.2)
[2017-09-08 22:44] VITALS: BP 152/89
== END 2017-09-08 23:18 | disposition home or self-care (01) ==
LOC: EME → EDBD 20:12 → EME 20:12
PROVIDERS: Emergency Medicine
DX: E86.0 Dehydration (principal); F20.9 Schizophrenia, unspecified; I49.3 Ventricular premature depolarization; R94.31 Abnormal electrocardiogram [ECG] [EKG]; E11.9 Type 2 diabetes mellitus without complications; I10 Essential (primary) hypertension; F32.9 Major depressive disorder, single episode, unspecified; Z79.84 Long term (current) use of oral hypoglycemic drugs; Z76.5 Malingerer [conscious simulation]; Z86.31 Personal history of diabetic foot ulcer; Z91.040 Latex allergy status
CPT/HCPCS: 80048; 84484; 85027; 90839; 93005; 99281; 99285; G0480; J7030

== ENCOUNTER 2017-09-09 19:10 | Emergency (ER) | payer OTHER ==
[~2017-09-09] VITALS: Ht 180.3 cm; Wt 141.2 kg
[2017-09-09 20:55] VITALS: BP 143/94
== END 2017-09-09 20:55 | disposition home or self-care (01) ==
LOC: EME → EDBD 19:10 → EME 19:10
DX: E86.0 Dehydration (principal); F20.9 Schizophrenia, unspecified; I10 Essential (primary) hypertension; E11.621 Type 2 diabetes mellitus with foot ulcer; Z79.84 Long term (current) use of oral hypoglycemic drugs; F32.9 Major depressive disorder, single episode, unspecified
CPT/HCPCS: 99281; 99284

== ENCOUNTER 2017-09-11 06:12 | Emergency (ER) | payer OTHER ==
[~2017-09-11] VITALS: Ht 180.3 cm; Wt 141.4 kg
[2017-09-11 06:52] LABS: BASOPHIL (%) 0.5 % (0-1); EOSINOPHIL (%) 0 % (0-5); HEMATOCRIT 43.1 % (38.0-50.0); HEMOGLOBIN 14.9 G/DL (12.5-16.6); IMMATURE GRANULOCYTE (%) 0.3 % (0.0-0.7); LYMPHOCYTE (%) 13.6 % (15-42); LYMPHOCYTE COUNT 0.9 K/uL (1.0-2.8); MCH 29.5 PG (29.0-34.0); MCHC 34.6 G/DL (30.0-36.0); MCV 85.3 FL (86-99); MONOCYTE (%) 4.7 % (3-12); MONOCYTE COUNT 0.3 K/uL (0-0.8); NEUTROPHIL (%) 80.9 % (45-76); NEUTROPHIL COUNT 5.1 K/uL (1.8-6.4); PLATELET COUNT 176 K/uL (156-360); RED BLOOD COUNT 5.05 M/uL (4.00-5.50); WHITE BLOOD COUNT 6.3 K/uL (4.1-10.2)
[2017-09-11 06:55] LABS: APPEARANCE SL.HAZY ((CLEAR)); BILIRUBIN NEGATIVE; BLOOD NEGATIVE; COLOR AMBER ((YELLOW)); GLUCOSE (STRIP) NEGATIVE; KETONES NEGATIVE; LEUKOCYTES SMALL; NITRITE NEGATIVE; PROTEIN (STRIP) 30; SPECIFIC GRAVITY 1.025 (1.000-1.030)
[2017-09-11 07:02] LABS: AMPHETAMINE NEGATIVE (500 ng/mL); BACTERIA RARE /HPF; BARBITURATES NEGATIVE (200 ng/mL); BENZODIAZEPINES NEGATIVE (150 ng/mL); BUPRENORPHINE NEGATIVE (10 ng/mL); COCAINE NEGATIVE (150 ng/mL); EPITHELIAL CELLS RARE /HPF; METHADONE NEGATIVE (200 ng/mL); METHAMPHETAMINE NEGATIVE (500 ng/mL); MUCUS 4+ /LPF; OPIATES (MORPHINE) NEGATIVE (100 ng/mL); OXYCODONE NEGATIVE (100 ng/mL); PHENCYCLIDINE NEGATIVE (25 ng/mL); PROPOXYPHENE NEGATIVE (300 ng/mL); RED BLOOD CELLS 0-5 /HPF (0-5); THC CANNABINOIDS NEGATIVE (50 ng/mL); TRICYCLIC ANTIDEPRESSANTS NEGATIVE (300 ng/mL); WHITE BLOOD CELLS 0-5 /HPF (0-5)
[2017-09-11 07:23] LABS: CHLORIDE 107 MEQ/L (99-109); CREATININE 1.1 MG/DL (0.6-1.3); GFR ESTIMATE (CALCULATED) > 59 mL/min/ (58.99-99999); GLUCOSE 108 mg/dL (70-99); POTASSIUM 3.7 MEQ/L (3.7-5.4); SERUM ETHYL ALCOHOL < 10 mg/dL; SODIUM 140 MEQ/L (136-147); UREA NITROGEN (BUN) 14 mg/dL (9-23)
[2017-09-11 07:45] VITALS: BP 114/55
== END 2017-09-11 07:55 | disposition home or self-care (01) ==
LOC: EME 06:12
PROVIDERS: Emergency Medicine
DX: F25.9 Schizoaffective disorder, unspecified (principal); F79 Unspecified intellectual disabilities; E11.9 Type 2 diabetes mellitus without complications; Z79.84 Long term (current) use of oral hypoglycemic drugs
CPT/HCPCS: 80048; 81003; 85025; 90837; 99281; 99284; G0480

== ENCOUNTER 2017-09-22 12:33 | Emergency (ER) | payer OTHER ==
[~2017-09-22] VITALS: Ht 180.3 cm; Wt 140.4 kg
[2017-09-22 12:52] LABS: APPEARANCE CLEAR ((CLEAR)); BILIRUBIN SMALL; BLOOD NEGATIVE; COLOR AMBER ((YELLOW)); GLUCOSE (STRIP) NEGATIVE; KETONES 5; LEUKOCYTES NEGATIVE; NITRITE NEGATIVE; PROTEIN (STRIP) 100; SPECIFIC GRAVITY 1.033 (1.000-1.030)
[2017-09-22 12:56] LABS: BASOPHIL (%) 0.4 % (0-1); EOSINOPHIL (%) 0 % (0-5); HEMATOCRIT 40.9 % (38.0-50.0); HEMOGLOBIN 13.9 G/DL (12.5-16.6); IMMATURE GRANULOCYTE (%) 0.3 % (0.0-0.7); LYMPHOCYTE (%) 16.5 % (15-42); LYMPHOCYTE COUNT 1.1 K/uL (1.0-2.8); MCH 28.5 PG (29.0-34.0); MONOCYTE (%) 5.1 % (3-12); MONOCYTE COUNT 0.4 K/uL (0-0.8); NEUTROPHIL (%) 77.7 % (45-76); NEUTROPHIL COUNT 5.4 K/uL (1.8-6.4); PLATELET COUNT 195 K/uL (156-360); RBC DIS.WIDTH-CV 12.9 % (11.8-14.6); RBC DIS.WIDTH-SD 39.3 % (39-53); RED BLOOD COUNT 4.87 M/uL (4.00-5.50); WHITE BLOOD COUNT 6.9 K/uL (4.1-10.2)
[2017-09-22 13:00] LABS: AMPHETAMINE NEGATIVE (500 ng/mL); BARBITURATES NEGATIVE (200 ng/mL); BENZODIAZEPINES NEGATIVE (150 ng/mL); BUPRENORPHINE NEGATIVE (10 ng/mL); COCAINE NEGATIVE (150 ng/mL); METHADONE NEGATIVE (200 ng/mL); METHAMPHETAMINE PRESUMPTIVE POSITIVE (500 ng/mL); OPIATES (MORPHINE) NEGATIVE (100 ng/mL); OXYCODONE NEGATIVE (100 ng/mL); PHENCYCLIDINE NEGATIVE (25 ng/mL); PROPOXYPHENE NEGATIVE (300 ng/mL); THC CANNABINOIDS NEGATIVE (50 ng/mL); TRICYCLIC ANTIDEPRESSANTS NEGATIVE (300 ng/mL)
[2017-09-22 13:06] LABS: CHLORIDE 107 mEq/L (99-109); POTASSIUM 3.6 mEq/L (3.7-5.4); SODIUM 141 mEq/L (136-147)
[2017-09-22 13:08] LABS: GLUCOSE 89 mg/dL (70-99)
[2017-09-22 13:09] LABS: BACTERIA 1+ /HPF; EPITHELIAL CELLS 1+ /HPF; MUCUS 3+ /LPF; RED BLOOD CELLS 0-5 /HPF (0-5); WHITE BLOOD CELLS 0-5 /HPF (0-5)
[2017-09-22 13:11] LABS: SERUM ETHYL ALCOHOL < 10 mg/dL
[2017-09-22 13:12] LABS: CREATININE 1.2 mg/dL (0.6-1.3); GFR ESTIMATE (CALCULATED) > 59 mL/min/ (58.99-99999); UREA NITROGEN (BUN) 10 mg/dL (9-23)
[2017-09-22 13:37] VITALS: BP 171/84
== END 2017-09-22 13:38 | disposition home or self-care (01) ==
LOC: EME 12:33
PROVIDERS: Emergency Medicine
DX: F32.9 Major depressive disorder, single episode, unspecified (principal); F41.9 Anxiety disorder, unspecified; Z76.5 Malingerer [conscious simulation]; E11.9 Type 2 diabetes mellitus without complications; I10 Essential (primary) hypertension; F20.9 Schizophrenia, unspecified; Z79.84 Long term (current) use of oral hypoglycemic drugs; Z86.31 Personal history of diabetic foot ulcer; Z91.040 Latex allergy status
CPT/HCPCS: 80048; 81003; 85025; 90839; 99281; 99283; G0480